=== PATIENT | female | born 1970 | race Caucasian/White ===

== ENCOUNTER 2017-10-13 01:42 | Emergency (ER) | payer BC ==
[2017-10-13] MEDS ORDERED: Albuterol-Ipratrop 3 mg / 0.5 (3 ml) UD ONE ×2 (02:19→04:20)
[2017-10-13] MEDS ORDERED: Albuterol-Ipratrop 3 mg / 0.5 (3 ml) UD INH STA (02:23)
--- NOTE | 2017-10-13 03:45 | C.PDOC ---
History Of Present Illness t presents with worsening shortness of breath. Took a treatment at home, but still sob. No f/c/n/v. Speaking in 4-5 word sentences. No cp or palpitations. Feels slightly better with the neb treatment in the ed Time Seen by Provider: 10/13/17 03:45 Chief Complaint (Nursing): Shortness Of Breath History Per: Patient History/Exam Limitations: no limitations Onset/Duration Of Symptoms: Days (1) Current Symptoms Are (Timing): Still Present Initiating Event: Upper Respiratory Illness Quality: Dull Exacerbating Factor(s): Coughing Current Respiratory Medications: See Home Med List Severity: Moderate Pain Scale Rating Of: 5 Associated Symptoms: denies: Productive Cough Reports Recently: Treated By A Physician Recent travel outside of the [place]: No Additional History Per: Family Past Medical History Reviewed: Historical Data, Nursing Documentation, Vital Signs Vital Signs: Last Vital Signs Temp 97.8 F 10/13/17 05:22 Pulse 84 10/13/17 05:22 Resp 17 10/13/17 05:22 BP 123/73 10/13/17 05:22 Pulse Ox 95 10/13/17 05:39 - Medical History PMH: Asthma, Bronchitis, Pneumonia Denies: HTN Family History: States: No Known Family Hx - Social History Hx Tobacco Use: No Hx Alcohol Use: No Hx Substance Use: No - Immunization History Hx Tetanus Toxoid Vaccination: No Hx Influenza Vaccination: No Hx Pneumococcal Vaccination: No Review Of Systems Constitutional: Negative for: Fever, Chills Eyes: Negative for: Redness ENT: Negative for: Throat Pain Cardiovascular: Negative for: Chest Pain Respiratory: Positive for: Cough, Shortness of Breath Gastrointestinal: Negative for: Abdominal Pain Genitourinary: Negative for: Dysuria Musculoskeletal: Negative for: Back Pain Skin: Negative for: Rash Neurological: Negative for: Weakness Psych: Negative for: Anxiety Physical Exam - Physical Exam Appears: Non-toxic Skin: Warm, Dry Head: Normacephalic Eye(s): bilateral: Normal Inspection Oral Mucosa: Moist Throat: No Erythema Neck: Supple Chest: Symmetrical Cardiovascular: Rhythm Regular Respiratory: Decreased Breath Sounds, No Rales, No Rhonchi, Wheezing Gastrointestinal/Abdominal: Soft, No Tenderness Back: Normal Inspection Extremity: Normal ROM Extremity: Bilateral: Atraumatic Neurological/Psych: Oriented x3, Normal Speech Gait: Steady ED Course And Treatment - Laboratory Results Result Diagrams: 10/13/17 04:11 10/13/17 04:11 O2 Sat by Pulse Oximetry: 95 Pulse Ox Interpretation: Normal - Radiology CXR: Interpreted by Me, Viewed By Me CXR Interpretation: No: Infiltrates, Fracture, Pnemothorax Reevaluation Time: 06:06 Reassessment Condition: Improved Critical Care Time - Critical Care Note Total Time (in mins): 30 Documented critical care: time excludes all time spent performing seperately billable procedures. Disposition Counseled Patient/Family Regarding: Studies Performed, Diagnosis, Need For Followup, Rx Given - Disposition Referrals: [facility] at [facility] [Outside] [facility] [Outside] Disposition: HOME/ ROUTINE Disposition Time: 03:45 Condition: FAIR Additional Instructions: Please return if symptoms recur Prescriptions: Albuterol/Ipratropium [Duoneb 3 MG/3 Ml-0.5 MG/3 Ml 3 Ml] 3 ml IH QID #50 neb Azithromycin [Zithromax Tri-Fabian] 500 mg PO DAILY #3 tab predniSONE [predniSONE Tab] 20 mg PO DAILY #3 tab Instructions: Asthma (DC) Forms: [employer] (South Korean) - Clinical Impression Clinical Impression: Asthma exacerbation
[2017-10-13] MEDS ORDERED: Sodium Chloride 0.9% 1,000 ML IV ONE (03:55)
[2017-10-13] MEDS: Albuterol-Ipratrop 3 mg / 0.5 (3 ml) UD IH SCH ×3 (04:05→04:35)
[2017-10-13] MEDS ORDERED: Sodium Chloride 0.9% 1,000 ML ONE (04:19)
[2017-10-13 04:33] LABS: ALBUMIN 4.1 g/dL (3.5-5.0); ALT/SGPT 33 U/L (9-52); AST/SGOT 25 U/L (14-36); BLOOD UREA NITROGEN 11 mg/dL (7-17); CALCIUM 9.3 mg/dl (8.6-10.4); GFR AFRICAN-AMERICAN > 60; GFR NON-AFRICAN AMERICAN > 60
[2017-10-13 04:45] LABS: BASO # 0.1 K/uL (0.0-0.2); BASO % 0.6 % (0.0-2.0); EOS # 0.7 K/uL (0.0-0.7); EOS % 5.3 % (0.0-4.0); HEMOGLOBIN 11.1 g/dL (11.0-16.0); LYMPH # 1.8 K/uL (1.0-4.3); MEAN CELL VOLUME 73.6 fL (81.0-99.0); MEAN CORPUSCULAR HEMOGLOBIN 23.9 pg (27.0-31.0); MEAN CORPUSCULAR HGB CONC 32.5 g/dL (33.0-37.0); MEAN PLATELET VOLUME 8.3 fL (7.2-11.7); MONO # 0.9 K/uL (0.0-0.8); MONO % 6.1 % (0.0-10.0); NEUT # 10.4 K/uL (1.8-7.0); RBC 4.66 Mil/uL (3.80-5.20); RED CELL DISTRIBUTION WIDTH 17.5 % (11.5-14.5); WHITE BLOOD COUNT 13.9 K/uL (4.8-10.8)
[2017-10-13 04:46] LABS: ABG ALLEN TEST POSITIVE; ARTERIAL BLOOD GAS HCO3 18.3 mmol/L (21-28); ARTERIAL BLOOD GAS O2 SAT 98.6 % (95-98); ARTERIAL BLOOD GAS PCO2 25 mm/Hg (35-45); ARTERIAL BLOOD GAS PH 7.38 (7.35-7.45); ARTERIAL BLOOD GAS PO2 99 mm/Hg (80-100); ARTERIAL BLOOD GAS TCO2 15.6 mmol/L (22-28)
[2017-10-13 05:23] VITALS: BP 123/73; PULSE 84; RESP 17; TEMP 97.8
[2017-10-13 05:39] VITALS: O2SAT 95
--- NOTE | 2017-10-13 11:00 | RAD ---
HISTORY: SOB COMPARISON: Chest x-ray performed 09/25/13 TECHNIQUE: Chest, one view. FINDINGS: LUNGS: No focal consolidation. Please note that chest x-ray has limited sensitivity for the detection of pulmonary masses. PLEURA: No significant pleural effusion identified. No definite pneumothorax . CARDIOVASCULAR: The cardiomediastinal silhouette appears within normal limits of size. OSSEOUS STRUCTURES: No acute osseous abnormality identified. VISUALIZED UPPER ABDOMEN: Unremarkable. OTHER FINDINGS: None. IMPRESSION: No focal consolidation, significant pleural effusion, or definite pneumothorax identified.
== END 2017-10-13 06:32 | disposition home or self-care (01) ==
LOC: C.ER 01:42
DX: J45.901 Unspecified asthma with (acute) exacerbation (principal)
CPT/HCPCS: 71045; 80053; 82803; 85025; 94640; 96361; 96374; 99285; J2930; J7040

== ENCOUNTER 2018-05-24 08:52 | Emergency (ER) | payer MEDICAID, OTHER ==
[2018-05-24 08:53] VITALS: BMI 29.9
[2018-05-24 09:08] VITALS: BP 119/80; PULSE 88; RESP 18; TEMP 98; O2SAT 98
[2018-05-24] MEDS ORDERED: Naproxen 550 mg Tab PO STA (09:22)
[2018-05-24] MEDS ORDERED: Naproxen 550 mg Tab PO ONE (09:27)
--- NOTE | 2018-05-24 10:05 | C.PDOC ---
Time Seen by Provider: 05/24/18 09:08 Chief Complaint (Nursing): Hip Pain Past Medical History Vital Signs: Last Vital Signs Temp 98 F 05/24/18 09:05 Pulse 88 05/24/18 09:05 Resp 18 05/24/18 09:05 BP 119/80 05/24/18 09:05 Pulse Ox 98 05/24/18 09:05 - Medical History PMH: Asthma, Bronchitis, Pneumonia Denies: Chronic Kidney Disease Family History: States: Unknown Family Hx - Social History Hx Tobacco Use: No Hx Alcohol Use: No Hx Substance Use: No - Immunization History Hx Tetanus Toxoid Vaccination: No Hx Influenza Vaccination: No Hx Pneumococcal Vaccination: No ED Course And Treatment O2 Sat by Pulse Oximetry: 98 Disposition Counseled Patient/Family Regarding: Studies Performed, Diagnosis, Need For Followup, Rx Given - Disposition Referrals: Sunita Dior MD [Staff Provider] - Disposition: HOME/ ROUTINE Disposition Time: 10:05 Condition: STABLE Additional Instructions: FOLLOW UP WITH ORTHOPEDICS WITHIN 1 WEEK USE MEDICATIONS NEEDED/DIRECTED RETURN TO ER IF SYMPTOMS WORSEN Prescriptions: Cyclobenzaprine [Flexeril] 10 mg PO BID PRN #15 tab PRN Reason: Muscle Spasm Naproxen [Naprosyn] 1 tab PO BID PRN #25 tab PRN Reason: Pain Instructions: Hip Pain (DC) Print Language: CHILEAN - POA Present On Arrival: None - Clinical Impression Clinical Impression: Right hip pain
--- NOTE | 2018-05-24 10:06 | C.PDOC ---
History Of Present Illness 47-year-old female, presents to the emergency department with complaints of right hip pain that started a few days ago. Pain is worse with movement. Patient denies any direct trauma. Time Seen by Provider: 05/24/18 09:08 Chief Complaint (Nursing): Hip Pain History Per: Patient History/Exam Limitations: no limitations Current Symptoms Are (Timing): Still Present Severity: Moderate Past Medical History Reviewed: Historical Data, Nursing Documentation, Vital Signs Vital Signs: Last Vital Signs Temp 98 F 05/24/18 09:05 Pulse 88 05/24/18 09:05 Resp 18 05/24/18 09:05 BP 119/80 05/24/18 09:05 Pulse Ox 98 05/24/18 10:09 - Medical History PMH: Asthma, Bronchitis, Pneumonia Family History: States: No Known Family Hx - Social History Hx Tobacco Use: No Hx Alcohol Use: No Hx Substance Use: No - Immunization History Hx Tetanus Toxoid Vaccination: No Hx Influenza Vaccination: No Hx Pneumococcal Vaccination: No Review Of Systems Musculoskeletal: Positive for: Other (Hip pain) Physical Exam - Physical Exam Appears: Non-toxic, No Acute Distress Skin: Warm, Dry, No Rash Head: Atraumatic, Normacephalic Eye(s): bilateral: Normal Inspection Nose: Normal Oral Mucosa: Moist Lips: Normal Appearing Neck: Normal ROM Chest: Symmetrical Respiratory: No Accessory Muscle Use Extremity: No Calf Tenderness, No Deformity, Other (Tender to palpation to right lateral and posterior hip.) Neurological/Psych: Oriented x3, Normal Speech Gait: Steady ED Course And Treatment O2 Sat by Pulse Oximetry: 98 Pulse Ox Interpretation: Normal (RA) - Other Rad XR hip X-Ray: Viewed By Me, Read By Radiologist Interpretation: Accession No. : [id number]. Patient Name / ID : LIDIA FOWLER / [id number]. Exam Date : 05/24/2018 09:41:23 ( Approved ). Study Comment : Sex / Age : F / 47Y. Creator : Nan Escoto MD. Dictator : Nan Escoto MD. Tooth Cutter Clutch : Taper Operator : Nan Escoto MD. Approver2 : Report Date : 05/24/2018 10:45:07. My Comment : . PROCEDURE: Right Hip Radiographs. HISTORY: Right hip pain. COMPARISON: None. FINDINGS: BONES: Bone alignment and mineralization are normal. There is no acute displaced fracture or bone destruction. JOINTS: Normal. SOFT TISSUES: Normal. OTHER FINDINGS: None. IMPRESSION: No acute fracture or dislocation. Progress Note: XR ordered and reviewed. Pt treated with naproxen and Flexeril. Reassessment Condition: Improved (Pt instructed to f/u with ortho. Return if symptoms worsen or persist.) Disposition - Disposition Referrals: Sunita Dior MD [Staff Provider] - Disposition: HOME/ ROUTINE Disposition Time: 10:05 Condition: STABLE Additional Instructions: FOLLOW UP WITH ORTHOPEDICS WITHIN 1 WEEK USE MEDICATIONS NEEDED/DIRECTED RETURN TO ER IF SYMPTOMS WORSEN Prescriptions: Cyclobenzaprine [Flexeril] 10 mg PO BID PRN #15 tab PRN Reason: Muscle Spasm Naproxen [Naprosyn] 1 tab PO BID PRN #25 tab PRN Reason: Pain Instructions: Hip Pain (DC) Forms: [employer] (Bhutanese) Print Language: SUDANESE - Clinical Impression Clinical Impression: Right hip pain - Scribe Statement The provider has reviewed the documentation as recorded by the Scribe (Ashlyn Marroquin) Provider Attestation: All medical record entries made by the Scribe were at my direction and personally dictated by me. I have reviewed the chart and agree that the record accurately reflects my personal performance of the history, physical exam, medical decision making, and the department course for this patient. I have also personally directed, reviewed, and agree with the discharge instructions and disposition.
--- NOTE | 2018-05-24 10:47 | RAD ---
PROCEDURE: Right Hip Radiographs. HISTORY: Right hip pain COMPARISON: None. FINDINGS: BONES: Bone alignment and mineralization are normal. There is no acute displaced fracture or bone destruction. JOINTS: Normal. SOFT TISSUES: Normal. OTHER FINDINGS: None. IMPRESSION: No acute fracture or dislocation.
== END 2018-05-24 10:08 | disposition home or self-care (01) ==
LOC: C.ER 08:52
DX: M25.551 Pain in right hip (principal)

== ENCOUNTER 2018-09-04 15:32 | Inpatient (IN) | payer MEDICAID ==
[2018-09-04 15:33] VITALS: BMI 29.9
[2018-09-04] MEDS ORDERED: Albuterol-Ipratrop 3 mg / 0.5 (3 ml) UD ONE ×3 (15:39→20:18)
[2018-09-04] MEDS ORDERED: Albuterol 0.083% Inhal Sol (2.5 mg/3 mL) UD INH STA (17:15)
[2018-09-04] MEDS ORDERED: Albuterol 0.042% Inhal Sol (1.25 mg/3 mL) UD ONE (17:45)
--- NOTE | 2018-09-04 18:16 | C.PDOC ---
History Of Present Illness 48 years old female with PMHx of asthma presents to ED for complaints of shortness of breath, subjective fever, and wheezing that began few days ago. Patient reports symptoms worsened today which prompted the ED visit. <Tamanna Mercado - Last Filed: 09/04/18 18:48> History Per: Patient History/Exam Limitations: no limitations Onset/Duration Of Symptoms: Hrs Current Symptoms Are (Timing): Still Present Current Respiratory Medications: See Home Med List Associated Symptoms: Fever Recent travel outside of the [place]: No <Tamanna Mercado - Last Filed: 09/04/18 18:48> <Neal Baron - Last Filed: 09/04/18 20:27> Time Seen by Provider: 09/04/18 16:41 Chief Complaint (Nursing): Shortness Of Breath Past Medical History Reviewed: Historical Data, Nursing Documentation, Vital Signs Vital Signs: Last Vital Signs Temp 98.6 F 09/04/18 15:41 Pulse 111 H 09/04/18 15:41 Resp 21 09/04/18 15:41 BP 121/76 09/04/18 15:41 Pulse Ox 94 L 09/04/18 15:41 - Medical History PMH: Asthma, Bronchitis, Pneumonia Denies: Chronic Kidney Disease Family History: States: Unknown Family Hx - Social History Hx Tobacco Use: No Hx Alcohol Use: No Hx Substance Use: No - Immunization History Hx Tetanus Toxoid Vaccination: No Hx Influenza Vaccination: No Hx Pneumococcal Vaccination: No <Tamanna Mercado - Last Filed: 09/04/18 18:48> Vital Signs: Last Vital Signs Temp 98.6 F 09/04/18 15:41 Pulse 111 H 09/04/18 15:41 Resp 18 09/04/18 18:05 BP 121/76 09/04/18 15:41 Pulse Ox 94 L 09/04/18 18:50 <Neal Baron - Last Filed: 09/04/18 20:27> Review Of Systems Constitutional: Positive for: Fever. Negative for: Chills Respiratory: Positive for: Shortness of Breath, Wheezing Gastrointestinal: Negative for: Nausea, Vomiting, Diarrhea Skin: Negative for: Rash Neurological: Negative for: Weakness, Numbness <Tamanna Mercado - Last Filed: 09/04/18 18:48> Physical Exam - Physical Exam Appears: Non-toxic, No Acute Distress, Other (Not febrile ) Skin: Normal Color, Warm, Dry, No Rash Head: Atraumatic, Normacephalic Eye(s): bilateral: Normal Inspection, PERRL, EOMI Oral Mucosa: Moist Neck: Normal ROM, Supple Chest: Symmetrical, No Tenderness Cardiovascular: Rhythm Regular, No Murmur Respiratory: No Decreased Breath Sounds, No Rales, No Rhonchi, Wheezing Gastrointestinal/Abdominal: Soft, No Tenderness Extremity: Normal ROM Extremity: Bilateral: Atraumatic, Normal Color And Temperature, Normal ROM Pulses: Left Radial: Normal, Right Radial: Normal Neurological/Psych: Oriented x3, Normal Speech Gait: Steady <Tamanna Mercado - Last Filed: 09/04/18 18:48> ED Course And Treatment O2 Sat by Pulse Oximetry: 94 (RA) Pulse Ox Interpretation: Abnormal Progress Note: Administered ALbuterol nebulizer treatment/ peak flow and solu- medrol. Ordered CXR, EKG, and flu AB swab. <Tamanna Mercado - Last Filed: 09/04/18 18:48> Disposition - Disposition Disposition Time: 18:50 <Tamanna Mercado - Last Filed: 09/04/18 18:48> Discussed With : Judi Engle Doctor Will See Patient In The: Hospital Counseled Patient/Family Regarding: Diagnosis - Disposition Disposition Time: 20:25 <Neal Baron - Last Filed: 09/04/18 20:27> - Disposition Disposition: HOSPITALIZED Condition: STABLE Instructions: Asthma (ED), Pneumonia in Adults Forms: [employer] (Andorran) - Clinical Impression Clinical Impression: Asthma exacerbation, Pneumonia - PA / DIGITAL FORENSICS EXAMINER / Resident Statement MD/DO has reviewed & agrees with the documentation as recorded. - Scribe Statement The provider has reviewed the documentation as recorded by the Crowibjaqui Eid All medical record entries made by the Crowibjaqui were at my direction and personally dictated by me. I have reviewed the chart and agree that the record accurately reflects my personal performance of the history, physical exam, medical decision making, and the department course for this patient. I have also personally directed, reviewed, and agree with the discharge instructions and disposition. <Tamanna Mercado - Last Filed: 09/04/18 18:48> Physician Patient Turnover Patient Signed Over To: Neal Baron Handoff Comments: pending chest CT and re-evaluation <Tamanna Mercado - Last Filed: 09/04/18 18:48>
--- NOTE | 2018-09-04 18:28 | RAD ---
HISTORY: cough/fever/wheezing COMPARISON: Chest x-ray performed 10/21/17 TECHNIQUE: Chest PA and lateral FINDINGS: LUNGS: Bilateral hilar prominence. Mild atelectasis/infiltrate silhouetting the right heart border, right middle lobe. 5 mm nodular opacity within the lateral left lower lobe possibly related to confluence of shadows however pulmonary nodule is not excluded. Please note that chest x-ray has limited sensitivity for the detection of pulmonary masses. PLEURA: No significant pleural effusion identified. No definite pneumothorax . CARDIOVASCULAR: Heart size appears within normal limits. Atherosclerotic calcification present. OSSEOUS STRUCTURES: No acute osseous abnormality is detected VISUALIZED UPPER ABDOMEN: Unremarkable. OTHER FINDINGS: None. IMPRESSION: Bilateral hilar prominence. Mild atelectasis/infiltrate silhouetting the right heart border, right middle lobe. 5 mm nodular opacity within the lateral left lower lobe possibly related to confluence of shadows however pulmonary nodule is not excluded. Outpatient follow-up CT of the chest may be considered for further evaluation if indicated.
[2018-09-04] MEDS ORDERED: Albuterol-Ipratrop 3 mg / 0.5 (3 ml) UD INH STA (19:53)
[2018-09-04] MEDS ORDERED: Azithromycin 500 MG in Sodium Chloride 0.9% 250 ML IVPB STA (20:11)
[2018-09-04] MEDS ORDERED: Azithromycin 500mg/250ML NS 500 MG/250 ML BAG IVPB ONE (21:30)
[2018-09-05] MEDS ORDERED: Albuterol HFA 90 mcg/actuation (8 g) IH PRN (02:12)
[2018-09-05] MEDS: Albuterol-Ipratrop 3 mg / 0.5 (3 ml) UD INH PRN ×2 (02:20→19:34)
[2018-09-05] MEDS: MethylPREDNISolone 40 mg Vial IVP SCH ×2 (02:32→10:37)
--- NOTE | 2018-09-05 07:48 | CP.PCM.PN ---
Subjective - Date & Time of Evaluation Date of Evaluation: 09/05/18 Time of Evaluation: 07:47 - Subjective Subjective: Medicine Progress Note - Dr Josselin Engle's Service Patient is a 48 year old female with past medical history of asthma who presented with worsening chest tightness and productive cough. Patient reports that 3 weeks ago she was experiencing dry cough, congestion and cold like symptoms. She started feeling better then on Sunday while at work started experiencing chest tightness. Cough now productive with yellow sputum. Also reports having subjective fevers and chills. Today she states that the chest tightness has improved. She reports feeling shortness of breath on exertion. 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 [employer] Family History: Mother - asthma, arthritits; Father - asthma Objective - Vital Signs/Intake and Output Vital Signs (last 24 hours): Temp Pulse Resp BP Pulse Ox 98.1 F 115 H 20 115/68 95 09/04/18 23:20 09/04/18 23:20 09/04/18 23:20 09/04/18 23:20 09/04/18 23:20 - Medications Medications: Current Medications Albuterol (Ventolin Hfa 90 Mcg/Actuation (8 G)) 1 puff IH Q6 PRN PRN Reason: Wheezing Albuterol/Ipratropium (Duoneb 3 Mg/0.5 Mg (3 Ml) Ud) 3 ml INH RQ2 PRN PRN Reason: Shortness of Breath Last Admin: 09/05/18 02:20 Dose: 3 ml Enoxaparin Sodium (Lovenox) 40 mg SC DAILY JOSE ARMANDO Fluticasone/Vilanterol (Breo Ellipta 100-25 Mcg Inh) 1 puff INH RQD JOSE ARMANDO Azithromycin 500 mg/ Sodium (Chloride) 250 mls @ 250 mls/hr IVPB DAILY JOSE ARMANDO; Protocol Methylprednisolone (Solu-Medrol) 60 mg IVP DAILY JOSE ARMANDO Last Admin: 09/05/18 02:32 Dose: 60 mg Montelukast Sodium (Singulair) 10 mg PO HS JOSE ARMANDO Pantoprazole Sodium (Protonix Inj) 40 mg IVP DAILY JOSE ARMANDO - Constitutional Appears: Non-toxic, No Acute Distress - Head Exam Head Exam: ATRAUMATIC, NORMAL INSPECTION, NORMOCEPHALIC - Eye Exam Eye Exam: EOMI, Normal appearance - ENT Exam ENT Exam: Mucous Membranes Moist - Neck Exam Neck Exam: Full ROM - Respiratory Exam Respiratory Exam: Rhonchi, Wheezes (mild wheezing throughout), NORMAL BREATHING PATTERN. absent: Rales, Respiratory Distress, Stridor - Cardiovascular Exam Cardiovascular Exam: REGULAR RHYTHM, +S1, +S2 - GI/Abdominal Exam GI & Abdominal Exam: Soft, Normal Bowel Sounds. absent: Guarding, Rigid, Tenderness - Extremities Exam Extremities Exam: Full ROM, Normal Inspection. absent: Calf Tenderness - Neurological Exam Neurological Exam: Alert, Awake, Oriented x3 - Psychiatric Exam Psychiatric exam: Normal Affect, Normal Mood - Skin Skin Exam: Dry, Normal Color, Warm Assessment and Plan - Assessment and Plan (Free Text) Assessment: Community Acquired Pneumonia -Stable, afebrile -No leukocytosis, low procal -Supplemental O2 as needed -Antibiotics: Azithromycin 500mg daily IVPB (started 09/04/18) -Influenza negative, mycoplasma pending -Pulmonology on consult, Dr Ramirez, help appreciated Imaging: CT Chest: Right middle lobe and lingular nodular and streaky opacities suspected to reflect multifocal pneumonia. Recommend follow-up to ensure complete resolution (see full report) CXR: Bilateral hilar prominence. Mild atelectasis/infiltrate silhouetting the right heart border, right middle lobe. 5 mm nodular opacity within the lateral left lower lobe possibly related to confluence of shadows however pulmonary nodule is not excluded. Outpatient follow-up CT of the chest may be considered for further evaluation if indicated (see full report) Asthma Exacerbation -Duonebs Q2H prn shortness of breath -Solumedrol 60mg IVP daily -Singulair 10mg PO HS -Breo 100-25mcg 1 INH daily -Pulmonology on consult, Dr Ramirez, help appreciated Microcytic Anemia -Hgb 10.5 today, asymptomatic -Likely Iron deficiency -Patient denies history of heavy periods, blood in stools -Never had a colonoscopy, recommend outpatient FIT test -Once pneumonia resolves, can start ferrous sulfate 325mg PO daily GI/DVT ppx: Protonix 40mg IVP daily Lovenox 40mg SC daily Plan discussed with Dr Josselin Escobar DO PGY-2
[2018-09-05 08:28] LABS: BASO % 0.1 % (0.0-2.0); HEMOGLOBIN 10.5 g/dL (11.0-16.0); LYMPH # 0.6 K/uL (1.0-4.3); LYMPH % 8.5 % (20.0-40.0); MEAN CELL VOLUME 74.1 fL (81.0-99.0); MEAN CORPUSCULAR HEMOGLOBIN 23.9 pg (27.0-31.0); MEAN CORPUSCULAR HGB CONC 32.3 g/dL (33.0-37.0); MEAN PLATELET VOLUME 7.7 fL (7.2-11.7); MONO # 0.1 K/uL (0.0-0.8); MONO % 1.3 % (0.0-10.0); NEUT # 6.1 K/uL (1.8-7.0); NEUT % 90.1 % (50.0-75.0); RBC 4.37 Mil/uL (3.80-5.20); RED CELL DISTRIBUTION WIDTH 17.9 % (11.5-14.5); WHITE BLOOD COUNT 6.8 K/uL (4.8-10.8)
[2018-09-05 08:32] LABS: PLATELET COUNT 422 K/uL (130-400)
[2018-09-05 08:41] LABS: ALB/GLOB RATIO 1.2 (1.0-2.1); ALBUMIN 4.4 g/dL (3.5-5.0); ALT/SGPT 22 U/L (9-52); AST/SGOT 19 U/L (14-36); BLOOD UREA NITROGEN 15 mg/dL (7-17); CALCIUM 9.7 mg/dl (8.6-10.4); GFR NON-AFRICAN AMERICAN > 60
[2018-09-05 08:58] LABS: ANISOCYTOSIS SLIGHT; HYPOCHROMIC SLIGHT; LYMPHOCYTE 8 % (20-40); MONOCYTE 1 % (0-10); NEUTROPHIL 91 % (50-75); OVALOCYTES SLIGHT; PLATELET ESTIMATE SLIGHTLY INCREASED (NORMAL); TOTAL CELLS COUNTED 100
[2018-09-05] MEDS ORDERED: Azithromycin 500 MG in Sodium Chloride 0.9% 250 ML IVPB SCH (10:00)
[2018-09-05] MEDS: Enoxaparin 40 mg Syringe SC SCH (10:42)
--- NOTE | 2018-09-05 10:57 | CT ---
Date of service: 09/04/2018 CT chest without IV contrast Indication: wheezing, cough., abnormal CXR Technique: Contiguous axial images were obtained through the chest without intravenous contrast enhancement. Sagittal and coronal reconstructions were generated and reviewed. This CT exam was performed using 1 or more of the following dose reduction techniques: Automated exposure control, adjustment of the MAA and/or kV according to patient size, and/or use of iterative reconstruction technique. Radiation dose (DLP): 375.46 MGy-cm. Comparison: Chest x-ray performed earlier the same day. Findings: Visualized portions of the inferior thyroid gland appear unremarkable. The mediastinal and hilar vascular structures appear within normal limits. The heart appears within normal limits of size. Sub cm mediastinal lymph nodes, nonspecific. Right middle lobe and lingular nodular and streaky opacities suspected to reflect multifocal pneumonia. No pleural effusion. No pneumothorax. Limited visualization of the noncontrast upper abdomen appears grossly unremarkable. No acute osseous abnormality is detected. Impression: Right middle lobe and lingular nodular and streaky opacities suspected to reflect multifocal pneumonia. Recommend follow-up to ensure complete resolution. Preliminary impression was provided by [employer].
[2018-09-05 12:31] LABS: IRON 40 ug/dL (37-170)
[2018-09-05 12:42] LABS: % IRON SATURATION 9 (20-55); TOTAL IRON BINDING CAPACITY 427 ug/dL (250-450)
[2018-09-05 13:07] LABS: FERRITIN 9.1 ng/mL
--- NOTE | 2018-09-05 13:52 | CP.PCM.HP ---
Past Patient History - Past Medical History & Family History Past Medical History?: Yes - Past Social History Smoking Status: Never Smoked - CARDIAC Hx Cardiac Disorders: No - PULMONARY Hx Asthma: Yes Hx Bronchitis: Yes Hx Pneumonia: Yes - NEUROLOGICAL Hx Neurological Disorder: No - HEENT Hx HEENT Problems: No - RENAL Hx Chronic Kidney Disease: No - ENDOCRINE/METABOLIC Hx Endocrine Disorders: No - HEMATOLOGICAL/ONCOLOGICAL Hx Blood Disorders: No - INTEGUMENTARY Hx Dermatological Problems: No - MUSCULOSKELETAL/RHEUMATOLOGICAL Hx Falls: No - GASTROINTESTINAL Hx Gastrointestinal Disorders: No - GENITOURINARY/GYNECOLOGICAL Hx Genitourinary Disorders: No - PSYCHIATRIC Hx Substance Use: No - SURGICAL HISTORY Hx Surgeries: Yes Hx Tubal Ligation: Yes - ANESTHESIA Hx Anesthesia: Yes Hx Anesthesia Reactions: No Meds Allergies/Adverse Reactions: Allergies Allergy/AdvReac Type Severity Reaction Status Date / Time Penicillins Allergy Mild RASH Verified 09/04/18 15:45 Physical Exam - Constitutional Appears: Well - Head Exam Head Exam: ATRAUMATIC, NORMAL INSPECTION, NORMOCEPHALIC - Eye Exam Eye Exam: EOMI, Normal appearance, PERRL Pupil Exam: NORMAL ACCOMODATION, PERRL - ENT Exam ENT Exam: Mucous Membranes Moist, Normal Exam - Neck Exam Neck exam: Positive for: Normal Inspection - Respiratory Exam Respiratory Exam: Decreased Breath Sounds - Cardiovascular Exam Cardiovascular Exam: REGULAR RHYTHM, +S1, +S2 - GI/Abdominal Exam GI & Abdominal Exam: Diminished Bowel Sounds, Soft - Rectal Exam Rectal Exam: Deferred Results - Vital Signs Recent Vital Signs: Last Vital Signs Temp 97.7 F 09/05/18 08:47 Pulse 83 09/05/18 08:47 Resp 20 09/05/18 08:47 BP 99/61 L 09/05/18 08:47 Pulse Ox 94 L 09/05/18 08:47 - Labs Result Diagrams: 09/05/18 08:23 09/05/18 08:23 Labs: Laboratory Results - last 24 hr 09/04/18 09/05/18 09/05/18 18:39 08:23 08:23 WBC 6.8 RBC 4.37 Hgb 10.5 L Hct 32.4 L MCV 74.1 L MCH 23.9 L MCHC 32.3 L RDW 17.9 H Plt Count 422 H D MPV 7.7 Neut % (Auto) 90.1 H Lymph % (Auto) 8.5 L [place] % (Auto) 1.3 Eos % (Auto) 0.0 Baso % (Auto) 0.1 Neut # (Auto) 6.1 Lymph # (Auto) 0.6 L [place] # (Auto) 0.1 Eos # (Auto) 0.0 Baso # (Auto) 0.0 Neutrophils % (Manual) 91 H Lymphocytes % (Manual) 8 L Monocytes % (Manual) 1 Platelet Estimate Slightly increased H Hypochromasia (manual) Slight Anisocytosis (manual) Slight Ovalocytes Slight Retic Count 1.0 Sodium Potassium Chloride Carbon Dioxide Anion Gap BUN Creatinine Est GFR ( Amer) Est GFR (Non-Af Amer) Random Glucose Calcium Iron TIBC % Saturation Transferrin Ferritin Total Bilirubin AST ALT Alkaline Phosphatase Total Protein Albumin Globulin Albumin/Globulin Ratio Procalcitonin 0.07 L Influenza Typ A,B (EIA) Negative for flu a/b 09/05/18 09/05/18 09/05/18 08:23 10:00 12:00 WBC RBC Hgb Hct MCV MCH MCHC RDW Plt Count MPV Neut % (Auto) Lymph % (Auto) [place] % (Auto) Eos % (Auto) Baso % (Auto) Neut # (Auto) Lymph # (Auto) [place] # (Auto) Eos # (Auto) Baso # (Auto) Neutrophils % (Manual) Lymphocytes % (Manual) Monocytes % (Manual) Platelet Estimate Hypochromasia (manual) Anisocytosis (manual) Ovalocytes Retic Count Sodium 134 Potassium 4.3 Chloride 101 Carbon Dioxide 21 L Anion Gap 16 BUN 15 Creatinine 0.6 L Est GFR ( Amer) > 60 Est GFR (Non-Af Amer) > 60 Random Glucose 187 H D Calcium 9.7 Iron 40 TIBC 427 % Saturation 9 L Transferrin 324.13 Ferritin 9.1 Total Bilirubin 0.4 AST 19 ALT 22 Alkaline Phosphatase 83 Total Protein 8.1 Albumin 4.4 Globulin 3.7 Albumin/Globulin Ratio 1.2 Procalcitonin Influenza Typ A,B (EIA)
--- NOTE | 2018-09-05 15:37 | CP.PCM.HP ---
<Millie Escobar - Last Filed: 09/05/18 15:46> History of Present Illness - History of Present Illness History of Present Illness: History and Physical - Hospitalist Service Patient is a 48 year old female with past medical history of asthma who presented with worsening chest tightness and productive cough. Patient reports that 3 weeks ago she was experiencing dry cough, congestion and cold like symptoms. She started feeling better then on Sunday while at work started experiencing chest tightness. Cough now productive with yellow sputum. Also reports having subjective fevers and chills. Today she states that the chest tightness has improved. She reports feeling shortness of breath on exertion. Patient was hospitalized for pneumonia 3 years ago and reports being in the hospital for approximately 1 week. She also reports using a humidifier at home, nebulizers and ventolin for her asthma. She denies fevers, chills, headaches, dizziness, cp, palpitations, abdominal pain, urinary symptoms, changes in bowel habits. 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 [employer] Family History: Mother - asthma, arthritis; Father - asthma Present on Admission - Present on Admission Any Indicators Present on Admission: No Past Patient History - Past Medical History & Family History Past Medical History?: Yes - Past Social History Smoking Status: Never Smoked - CARDIAC Hx Cardiac Disorders: No - PULMONARY Hx Asthma: Yes Hx Bronchitis: Yes Hx Pneumonia: Yes - NEUROLOGICAL Hx Neurological Disorder: No - HEENT Hx HEENT Problems: No - RENAL Hx Chronic Kidney Disease: No - ENDOCRINE/METABOLIC Hx Endocrine Disorders: No - HEMATOLOGICAL/ONCOLOGICAL Hx Blood Disorders: No - INTEGUMENTARY Hx Dermatological Problems: No - MUSCULOSKELETAL/RHEUMATOLOGICAL Hx Falls: No - GASTROINTESTINAL Hx Gastrointestinal Disorders: No - GENITOURINARY/GYNECOLOGICAL Hx Genitourinary Disorders: No - PSYCHIATRIC Hx Substance Use: No - SURGICAL HISTORY Hx Surgeries: Yes Hx Tubal Ligation: Yes - ANESTHESIA Hx Anesthesia: Yes Hx Anesthesia Reactions: No Meds Allergies/Adverse Reactions: Allergies Allergy/AdvReac Type Severity Reaction Status Date / Time Penicillins Allergy Mild RASH Verified 09/04/18 15:45 Physical Exam - Additional Findings Additional findings: - Constitutional Appears: Non-toxic, No Acute Distress - Head Exam Head Exam: ATRAUMATIC, NORMAL INSPECTION, NORMOCEPHALIC - Eye Exam Eye Exam: EOMI, Normal appearance - ENT Exam ENT Exam: Mucous Membranes Moist - Neck Exam Neck Exam: Full ROM - Respiratory Exam Respiratory Exam: Rhonchi, Wheezes (mild wheezing throughout), NORMAL BREATHING PATTERN. absent: Rales, Respiratory Distress, Stridor - Cardiovascular Exam Cardiovascular Exam: REGULAR RHYTHM, +S1, +S2 - GI/Abdominal Exam GI & Abdominal Exam: Soft, Normal Bowel Sounds. absent: Guarding, Rigid, Tenderness - Extremities Exam Extremities Exam: Full ROM, Normal Inspection. absent: Calf Tenderness - Neurological Exam Neurological Exam: Alert, Awake, Oriented x3 - Psychiatric Exam Psychiatric exam: Normal Affect, Normal Mood - Skin Skin Exam: Dry, Normal Color, Warm Results - Vital Signs Recent Vital Signs: Last Vital Signs Temp 97.7 F 09/05/18 08:47 Pulse 83 09/05/18 08:47 Resp 20 09/05/18 08:47 BP 99/61 L 09/05/18 08:47 Pulse Ox 94 L 09/05/18 08:47 - Labs Result Diagrams: 09/05/18 08:23 09/05/18 08:23 Labs: Laboratory Results - last 24 hr 09/04/18 09/05/18 09/05/18 18:39 08:23 08:23 WBC 6.8 RBC 4.37 Hgb 10.5 L Hct 32.4 L MCV 74.1 L MCH 23.9 L MCHC 32.3 L RDW 17.9 H Plt Count 422 H D MPV 7.7 Neut % (Auto) 90.1 H Lymph % (Auto) 8.5 L [place] % (Auto) 1.3 Eos % (Auto) 0.0 Baso % (Auto) 0.1 Neut # (Auto) 6.1 Lymph # (Auto) 0.6 L [place] # (Auto) 0.1 Eos # (Auto) 0.0 Baso # (Auto) 0.0 Neutrophils % (Manual) 91 H Lymphocytes % (Manual) 8 L Monocytes % (Manual) 1 Platelet Estimate Slightly increased H Hypochromasia (manual) Slight Anisocytosis (manual) Slight Ovalocytes Slight Retic Count 1.0 Sodium Potassium Chloride Carbon Dioxide Anion Gap BUN Creatinine Est GFR ( Amer) Est GFR (Non-Af Amer) Random Glucose Calcium Iron TIBC % Saturation Transferrin Ferritin Total Bilirubin AST ALT Alkaline Phosphatase Total Protein Albumin Globulin Albumin/Globulin Ratio Procalcitonin 0.07 L Influenza Typ A,B (EIA) Negative for flu a/b 09/05/18 09/05/18 09/05/18 08:23 10:00 12:00 WBC RBC Hgb Hct MCV MCH MCHC RDW Plt Count MPV Neut % (Auto) Lymph % (Auto) [place] % (Auto) Eos % (Auto) Baso % (Auto) Neut # (Auto) Lymph # (Auto) [place] # (Auto) Eos # (Auto) Baso # (Auto) Neutrophils % (Manual) Lymphocytes % (Manual) Monocytes % (Manual) Platelet Estimate Hypochromasia (manual) Anisocytosis (manual) Ovalocytes Retic Count Sodium 134 Potassium 4.3 Chloride 101 Carbon Dioxide 21 L Anion Gap 16 BUN 15 Creatinine 0.6 L Est GFR ( Amer) > 60 Est GFR (Non-Af Amer) > 60 Random Glucose 187 H D Calcium 9.7 Iron 40 TIBC 427 % Saturation 9 L Transferrin 324.13 Ferritin 9.1 Total Bilirubin 0.4 AST 19 ALT 22 Alkaline Phosphatase 83 Total Protein 8.1 Albumin 4.4 Globulin 3.7 Albumin/Globulin Ratio 1.2 Procalcitonin Influenza Typ A,B (EIA) Assessment & Plan - Assessment and Plan (Free Text) Assessment: Patient is a 48 year old female with past medical history of asthma who presented with chest tightness, productive cough, fevers/chills. Found to have multi-focal pneumonia. Community Acquired Pneumonia -Stable, afebrile -No leukocytosis, low procal -Supplemental O2 as needed -Antibiotics: Azithromycin 500mg daily IVPB (started 09/04/18-discontinued), Started Avelox 400mg IVPB daily -Influenza negative, mycoplasma pending -Urine Legionella, strep pneumonia ordered -Pulmonology on consult, Dr Ramirez, help appreciated Imaging: CT Chest: Right middle lobe and lingular nodular and streaky opacities suspected to reflect multifocal pneumonia. Recommend follow-up to ensure complete resolution (see full report) CXR: Bilateral hilar prominence. Mild atelectasis/infiltrate silhouetting the right heart border, right middle lobe. 5 mm nodular opacity within the lateral left lower lobe possibly related to confluence of shadows however pulmonary nodule is not excluded. Outpatient follow-up CT of the chest may be considered for further evaluation if indicated (see full report) Asthma Exacerbation -Duonebs Q2H prn shortness of breath -Solumedrol 40mg IVP daily -Singulair 10mg PO HS -Breo 100-25mcg 1 INH daily -Pulmonology on consult, Dr Ramirez, help appreciated Microcytic Anemia -Hgb 10.5 today, asymptomatic -Likely due to Iron deficiency -Patient denies history of heavy periods, blood in stools -Never had a colonoscopy, recommend outpatient FIT test -Low iron and % saturation -Once pneumonia resolves, can start ferrous sulfate 325mg PO daily GI/DVT ppx: Protonix 40mg IVP daily Lovenox 40mg SC daily Plan discussed with Dr Rhys Escobar DO PGY-2 <Shelton Joiner - Last Filed: 09/07/18 19:56> Results - Vital Signs Recent Vital Signs: Last Vital Signs Temp 97.9 F 09/07/18 15:00 Pulse 79 09/07/18 15:00 Resp 18 09/07/18 15:00 BP 96/66 L 09/07/18 15:00 Pulse Ox 95 09/07/18 15:00 - Labs Result Diagrams: 09/07/18 08:02 09/07/18 08:02 Labs: Laboratory Results - last 24 hr 09/07/18 09/07/18 08:02 08:02 WBC 10.5 RBC 4.34 Hgb 10.2 L Hct 32.7 L MCV 75.4 L MCH 23.5 L MCHC 31.2 L RDW 17.8 H Plt Count 383 D MPV 8.4 Neut % (Auto) 61.5 Lymph % (Auto) 27.8 [place] % (Auto) 9.1 Eos % (Auto) 1.0 Baso % (Auto) 0.6 Neut # (Auto) 6.5 Lymph # (Auto) 2.9 [place] # (Auto) 1.0 H Eos # (Auto) 0.1 Baso # (Auto) 0.1 Sodium 138 Potassium 4.4 Chloride 103 Carbon Dioxide 29 Anion Gap 10 BUN 20 H Creatinine 0.8 Est GFR ( Amer) > 60 Est GFR (Non-Af Amer) > 60 Random Glucose 100 Calcium 8.7 Phosphorus 4.4 Magnesium 2.1 Total Bilirubin 0.3 AST 21 ALT 20 Alkaline Phosphatase 68 Total Protein 7.0 Albumin 3.7 Globulin 3.3 Albumin/Globulin Ratio 1.1 Attending/Attestation - Attestation I have personally seen and examined this patient.: Yes I have fully participated in the care of the patient.: Yes I have reviewed all pertinent clinical information: Yes Notes (Text): Seen and examined with the resident and I agree with her documentation Has bilat rhonchi c/o cough and sob Assessment and the plan discussed with the resident and I agree with the documentation
[2018-09-05] MEDS ORDERED: Apap-Butalbital-Caffeine 325-50-40mg Tab PO ONE (15:45)
[2018-09-05] MEDS: guaiFENesin DM 200 mg-20 mg/10 ml UD PO PRN ×2 (16:20→22:06)
[2018-09-05] MEDS: Lactobacillus Acidophilus 500 MU Cap PO SCH (17:44)
--- NOTE | 2018-09-05 18:34 | CP.PCM.PN ---
Subjective - Date & Time of Evaluation Date of Evaluation: 09/05/18 Time of Evaluation: 11:40 - Subjective Subjective: HPI: 48 year old female with PMH of asthma presents with worsening SOB, wheezing, and subjective fever over the last few days. CXR showed mild atelectasis/infiltrate at right middle lobe along with a 5 mm nodular opacity in the left lower lobe that prompted a CT which showed multi-focal pneumonia of right middle lobe and lingula. Associated symptoms include chest pain with coughing. Symptoms have improved with breathing treatments. Patient currently resting comfortably on 1L NC. PMH: asthma PSH: tubal ligation at age 21 All: penicillin; cats and long hair dogs FamHx: significant for HTN, HLD, DM; mother and sister with leukemia, grandson has lymphoma, grandfather had lung CA, grandmother had Alzheimers SocialHx: former smoker, used roughly 1ppd on and off for over 10 years, quit 6 years ago; denies alcohol use, denies illicit drug use. Lives with family. 10 point ROS negative except for as mentioned in HPI. A&P 1. Pneumonia - 09/04/18 CXR: mild atelectasis/infiltrate at right middle lobe along with a 5 mm nodular opacity in the left lower lobe - 09/04/18 CT chest: multi-focal pneumonia of right middle lobe and lingula - 09/05/18 started azithromycin (Rocephin not given due to penicillin allergy) 2. Asthma exacerbation - Albuterol, steroids, Singulair started Objective - Vital Signs/Intake and Output Vital Signs (last 24 hours): Temp Pulse Resp BP Pulse Ox 97.8 F 101 H 20 114/77 95 09/05/18 15:05 09/05/18 15:05 09/05/18 15:05 09/05/18 15:05 09/05/18 15:05 - Medications Medications: Current Medications Acetaminophen (Tylenol 325mg Tab) 650 mg PO Q6 PRN PRN Reason: Pain, moderate (4-7) Last Admin: 09/05/18 08:14 Dose: 650 mg Albuterol/Ipratropium (Duoneb 3 Mg/0.5 Mg (3 Ml) Ud) 3 ml INH RQ2 PRN PRN Reason: Shortness of Breath Last Admin: 09/05/18 02:20 Dose: 3 ml Enoxaparin Sodium (Lovenox) 40 mg SC DAILY [facility] Last Admin: 09/05/18 10:42 Dose: 40 mg Fluticasone/Vilanterol (Breo Ellipta 100-25 Mcg Inh) 1 puff INH RQD [facility] Guaifenesin/Dextromethorphan (Robitussin Dm) 10 ml PO Q4H PRN PRN Reason: Cough and congestion Last Admin: 09/05/18 16:20 Dose: 10 ml Moxifloxacin HCl (Avelox Iv 400mg/250ml Ns) 400 mg in 250 mls @ 167 mls/hr IVPB Q24H JOSE ARMANDO; Protocol Lactobacillus Acidophilus (Bacid Acidophilus) 1 cap PO BID [facility] Last Admin: 09/05/18 17:44 Dose: 1 cap Methylprednisolone (Solu-Medrol) 40 mg IVP DAILY [facility] Montelukast Sodium (Singulair) 10 mg PO HS JOSE ARMANDO Pantoprazole Sodium (Protonix Inj) 40 mg IVP DAILY [facility] Last Admin: 09/05/18 10:37 Dose: 40 mg Pneumococcal Polyvalent Vaccine (Pneumovax 23 Vaccine) 0.5 ml IM .ONCE ONE Stop: 09/07/18 10:01 - Labs Labs: 09/05/18 08:23 09/05/18 08:23
[2018-09-05 19:26] LABS: STREP PNEUMONIAE NEGATIVE (NEGATIVE)
--- NOTE | 2018-09-05 23:17 | CARD ---
APPROVED REPORT Date of service: 09/04/2018 EKG Measurement Heart [id number] <Conclusion> Sinus tachycardia Nonspecific T wave abnormality Abnormal ECG
--- NOTE | 2018-09-06 07:38 | CP.PCM.PN ---
<KayleeJovanny - Last Filed: 09/06/18 15:31> Subjective - Date & Time of Evaluation Date of Evaluation: 09/06/18 Time of Evaluation: 07:30 - Subjective Subjective: Jovanyn Page PGY1 Progress Note for Dr. Joiner Pt was examined at bedside this morning. She reports slight improvement in her shortness of breath and chest tightness. She reports continuation of her cough, which is productive with yellow sputum. Pt also complains of chills. She denies any dizziness, chest pain, abdominal pain, nausea, vomiting, diarrhea, dysuria. Objective - Vital Signs/Intake and Output Vital Signs (last 24 hours): Temp Pulse Resp BP Pulse Ox 97.7 F 73 20 109/67 97 09/05/18 23:30 09/05/18 23:30 09/05/18 23:30 09/05/18 23:30 09/05/18 23:30 Intake and Output: 09/06/18 09/06/18 06:59 18:59 Intake Total 350 Balance 350 - Medications Medications: Current Medications Acetaminophen (Tylenol 325mg Tab) 650 mg PO Q6 PRN PRN Reason: Pain, moderate (4-7) Last Admin: 09/05/18 08:14 Dose: 650 mg Albuterol/Ipratropium (Duoneb 3 Mg/0.5 Mg (3 Ml) Ud) 3 ml INH RQ2 PRN PRN Reason: Shortness of Breath Last Admin: 09/05/18 19:34 Dose: 3 ml Enoxaparin Sodium (Lovenox) 40 mg SC DAILY [facility] ARMANDO Last Admin: 09/05/18 10:42 Dose: 40 mg Fluticasone/Vilanterol (Breo Ellipta 100-25 Mcg Inh) 1 puff INH RQD JOSE ARMANDO Guaifenesin/Dextromethorphan (Robitussin Dm) 10 ml PO Q4H PRN PRN Reason: Cough and congestion Last Admin: 09/05/18 22:06 Dose: 10 ml Moxifloxacin HCl (Avelox Iv 400mg/250ml Ns) 400 mg in 250 mls @ 167 mls/hr IVPB Q24H JOSE ARMANDO; Protocol Lactobacillus Acidophilus (Bacid Acidophilus) 1 cap PO BID JOSE ARMANDO Last Admin: 09/05/18 17:44 Dose: 1 cap Methylprednisolone (Solu-Medrol) 40 mg IVP DAILY [facility] Montelukast Sodium (Singulair) 10 mg PO HS [facility] Last Admin: 09/05/18 22:06 Dose: 10 mg Pantoprazole Sodium (Protonix Inj) 40 mg IVP DAILY [facility] Last Admin: 09/05/18 10:37 Dose: 40 mg Pneumococcal Polyvalent Vaccine (Pneumovax 23 Vaccine) 0.5 ml IM .ONCE ONE Stop: 09/07/18 10:01 - Labs Labs: 09/05/18 08:23 09/05/18 08:23 - Constitutional Appears: Well, No Acute Distress - Head Exam Head Exam: ATRAUMATIC, NORMOCEPHALIC - Eye Exam Eye Exam: EOMI, PERRL Pupil Exam: NORMAL ACCOMODATION - ENT Exam ENT Exam: Mucous Membranes Moist - Respiratory Exam Respiratory Exam: Decreased Breath Sounds, Wheezes, NORMAL BREATHING PATTERN. absent: Rhonchi Additional comments: mild inspiratory wheezes in R upper and lower lung [place]. decreased breath sounds b/l - Cardiovascular Exam Cardiovascular Exam: REGULAR RHYTHM, +S1, +S2. absent: Gallop, Rubs, Murmur - GI/Abdominal Exam GI & Abdominal Exam: Soft, Normal Bowel Sounds. absent: Distended, Firm, Tenderness - Extremities Exam Extremities Exam: Normal Inspection. absent: Pedal Edema - Neurological Exam Neurological Exam: Alert, Awake, Oriented x3 - Psychiatric Exam Psychiatric exam: Normal Affect, Normal Mood - Skin Skin Exam: Normal Color Assessment and Plan - Assessment and Plan (Free Text) Assessment: Patient is a 48 year old female with past medical history of asthma who presented with chest tightness, productive cough, fevers/chills. Found to have multi-focal pneumonia. Plan: Community Acquired Pneumonia - afebrile - leukocytosis, likely secondary to steroid administration - CT Chest: Right middle lobe and lingular nodular and streaky opacities suspected to reflect multifocal pneumonia. - CXR: Bilateral hilar prominence. Mild atelectasis/infiltrate silhouetting the right heart border, right middle lobe. 5 mm nodular opacity within the lateral left lower lobe possibly related to confluence of shadows however pulmonary nodule is not excluded - high flow O2 q4h - supplemental O2 NC PRN - Antibiotics: Avelox 400mg IVPB daily (09/05) - Influenza negative - mycoplasma pending - Urine Legionella neg, strep pneumonia neg - Pulmonology consulted, Dr Ramirez, help appreciated Asthma Exacerbation - Duonebs Q2H prn shortness of breath - Solumedrol 40mg IVP daily - Singulair 10mg PO HS - Breo 100-25mcg 1 INH daily - high flow O2 q4h - Pulmonology consulted, Dr Ramirez, help appreciated Microcytic Anemia - Hgb 10.5 today, asymptomatic - Low iron and % saturation - Likely due to Iron deficiency - Patient denies history of heavy periods, blood in stools - Once pneumonia resolves, can start ferrous sulfate 325mg PO daily GI/DVT ppx: Protonix 40mg IVP daily Lovenox 40mg SC daily Regular Diet Dispo: Pt still complains of shortness of breath with activity. Will re-eval tomorrow for possible d/c on oral antibiotics. Pt seen and plan discussed with Dr Joiner <Shelton Joiner - Last Filed: 09/07/18 19:54> Objective - Vital Signs/Intake and Output Vital Signs (last 24 hours): Temp Pulse Resp BP Pulse Ox 97.9 F 79 18 96/66 L 95 09/07/18 15:00 09/07/18 15:00 09/07/18 15:00 09/07/18 15:00 09/07/18 15:00 - Medications Medications: Current Medications Acetaminophen (Tylenol 325mg Tab) 650 mg PO Q6 PRN PRN Reason: Pain, moderate (4-7) Last Admin: 09/05/18 08:14 Dose: 650 mg Albuterol/Ipratropium (Duoneb 3 Mg/0.5 Mg (3 Ml) Ud) 3 ml INH RQ2 PRN PRN Reason: Shortness of Breath Last Admin: 09/06/18 13:39 Dose: 3 ml Enoxaparin Sodium (Lovenox) 40 mg SC DAILY [facility] ARMANDO Last Admin: 09/07/18 10:19 Dose: 40 mg Fluticasone/Vilanterol (Breo Ellipta 100-25 Mcg Inh) 1 puff INH RQD JOSE ARMANDO Last Admin: 09/07/18 11:10 Dose: Not Given Guaifenesin/Dextromethorphan (Robitussin Dm) 10 ml PO Q4H PRN PRN Reason: Cough and congestion Last Admin: 09/07/18 10:19 Dose: 10 ml Moxifloxacin HCl (Avelox Iv 400mg/250ml Ns) 400 mg in 250 mls @ 167 mls/hr IVPB Q24H JOSE ARMANDO; Protocol Last Admin: 09/07/18 10:19 Dose: 167 mls/hr Lactobacillus Acidophilus (Bacid Acidophilus) 1 cap PO BID JOSE ARMANDO Last Admin: 09/07/18 18:48 Dose: 1 cap Methylprednisolone (Solu-Medrol) 40 mg IVP DAILY JOSE ARMANDO Last Admin: 09/07/18 10:19 Dose: 40 mg Montelukast Sodium (Singulair) 10 mg PO HS JOSE ARMANDO Last Admin: 09/06/18 22:24 Dose: 10 mg Pantoprazole Sodium (Protonix Ec Tab) 40 mg PO DAILY [facility]SE ARMANDO Last Admin: 09/07/18 10:19 Dose: 40 mg - Labs Labs: 09/07/18 08:02 09/07/18 08:02 Attending/Attestation - Attestation I have personally seen and examined this patient.: Yes I have fully participated in the care of the patient.: Yes I have reviewed all pertinent clinical information, including history, physical exam and plan: Yes Notes (Text): Not feeling well today as per pt seen and examined spoke to Dr Ramirez has bilateral rhonchi,continue avelox ,steroid and neb Not stable for discharge today follow tomorrow
[2018-09-06] MEDS: Albuterol-Ipratrop 3 mg / 0.5 (3 ml) UD INH PRN ×2 (07:42→13:39)
[2018-09-06 07:55] LABS: BASO # 0.1 K/uL (0.0-0.2); BASO % 0.6 % (0.0-2.0); HEMOGLOBIN 10.5 g/dL (11.0-16.0); MEAN CELL VOLUME 75.3 fL (81.0-99.0); MEAN CORPUSCULAR HEMOGLOBIN 24.1 pg (27.0-31.0); MEAN PLATELET VOLUME 8.2 fL (7.2-11.7); MONO # 1.2 K/uL (0.0-0.8); MONO % 7.3 % (0.0-10.0); NEUT # 13.2 K/uL (1.8-7.0); NEUT % 80.1 % (50.0-75.0); RBC 4.36 Mil/uL (3.80-5.20); RED CELL DISTRIBUTION WIDTH 17.9 % (11.5-14.5)
[2018-09-06 08:04] LABS: WHITE BLOOD COUNT 16.4 K/uL (4.8-10.8)
[2018-09-06 08:23] LABS: ALB/GLOB RATIO 1.1 (1.0-2.1); ALT/SGPT 19 U/L (9-52); AST/SGOT 20 U/L (14-36); BLOOD UREA NITROGEN 16 mg/dL (7-17); CALCIUM 9.4 mg/dl (8.6-10.4); GFR NON-AFRICAN AMERICAN > 60
[2018-09-06] MEDS: Pantoprazole 40 mg EC Tab PO SCH (09:38)
[2018-09-06] MEDS: Enoxaparin 40 mg Syringe SC SCH (09:47)
[2018-09-06] MEDS: MethylPREDNISolone 40 mg Vial IVP SCH (09:47)
[2018-09-06] MEDS: Moxifloxacin IV 400mg/250ml NS 400 MG/250 ML BAG IVPB SCH (09:47)
[2018-09-06] MEDS: guaiFENesin DM 200 mg-20 mg/10 ml UD PO PRN (09:48)
[2018-09-06] MEDS: Lactobacillus Acidophilus 500 MU Cap PO SCH ×2 (11:57→17:34)
[2018-09-06] MEDS: Fluticasone-Vilanterol 100/25mcg Diskus INH SCH (13:39)
--- NOTE | 2018-09-06 17:45 | CP.PCM.PN ---
Subjective - Date & Time of Evaluation Date of Evaluation: 09/06/18 Time of Evaluation: 12:25 - Subjective Subjective: Patient seen and examined at bedside. Patient states that her SOB has improved with the nebulizer treatments but has developed a persistent productive cough with yellow sputum which kept her up last night. Denies chest pain. Exam: Lungs - diminished breath sounds bilaterally with scattered wheezes A&P 1. Pneumonia - 09/04/18 CXR: mild atelectasis/infiltrate at right middle lobe along with a 5 mm nodular opacity in the left lower lobe - 09/04/18 CT chest: multi-focal pneumonia of right middle lobe and lingula - 09/05/18 started azithromycin - 09/06/18 started Avelox (azithro d/elijah) 2. Asthma exacerbation - Albuterol, steroids, Singulair started Objective - Vital Signs/Intake and Output Vital Signs (last 24 hours): Temp Pulse Resp BP Pulse Ox 97.9 F 100 H 20 94/57 L 96 09/06/18 15:02 09/06/18 15:02 09/06/18 15:02 09/06/18 15:02 09/06/18 15:02 Intake and Output: 09/06/18 09/06/18 06:59 18:59 Intake Total 350 Balance 350 - Medications Medications: Current Medications Acetaminophen (Tylenol 325mg Tab) 650 mg PO Q6 PRN PRN Reason: Pain, moderate (4-7) Last Admin: 09/05/18 08:14 Dose: 650 mg Albuterol/Ipratropium (Duoneb 3 Mg/0.5 Mg (3 Ml) Ud) 3 ml INH RQ2 PRN PRN Reason: Shortness of Breath Last Admin: 09/06/18 13:39 Dose: 3 ml Enoxaparin Sodium (Lovenox) 40 mg SC DAILY [facility] Last Admin: 09/06/18 09:47 Dose: 40 mg Fluticasone/Vilanterol (Breo Ellipta 100-25 Mcg Inh) 1 puff INH RQD [facility] ARMANDO Last Admin: 09/06/18 13:39 Dose: Not Given Guaifenesin/Dextromethorphan (Robitussin Dm) 10 ml PO Q4H PRN PRN Reason: Cough and congestion Last Admin: 09/06/18 09:48 Dose: 10 ml Moxifloxacin HCl (Avelox Iv 400mg/250ml Ns) 400 mg in 250 mls @ 167 mls/hr IVPB Q24H [facility]; Protocol Last Admin: 09/06/18 09:47 Dose: 167 mls/hr Lactobacillus Acidophilus (Bacid Acidophilus) 1 cap PO BID [facility] Last Admin: 09/06/18 17:34 Dose: 1 cap Methylprednisolone (Solu-Medrol) 40 mg IVP DAILY [facility] Last Admin: 09/06/18 09:47 Dose: 40 mg Montelukast Sodium (Singulair) 10 mg PO HS [facility] Last Admin: 09/05/18 22:06 Dose: 10 mg Pantoprazole Sodium (Protonix Ec Tab) 40 mg PO DAILY [facility] Last Admin: 09/06/18 09:38 Dose: 40 mg Pneumococcal Polyvalent Vaccine (Pneumovax 23 Vaccine) 0.5 ml IM .ONCE ONE Stop: 09/07/18 10:01 - Labs Labs: 09/06/18 07:40 09/06/18 07:40
[2018-09-07 08:24] LABS: BASO # 0.1 K/uL (0.0-0.2); BASO % 0.6 % (0.0-2.0); EOS # 0.1 K/uL (0.0-0.7); HEMOGLOBIN 10.2 g/dL (11.0-16.0); LYMPH # 2.9 K/uL (1.0-4.3); LYMPH % 27.8 % (20.0-40.0); MEAN CELL VOLUME 75.4 fL (81.0-99.0); MEAN CORPUSCULAR HEMOGLOBIN 23.5 pg (27.0-31.0); MEAN CORPUSCULAR HGB CONC 31.2 g/dL (33.0-37.0); MEAN PLATELET VOLUME 8.4 fL (7.2-11.7); MONO % 9.1 % (0.0-10.0); NEUT # 6.5 K/uL (1.8-7.0); NEUT % 61.5 % (50.0-75.0); NRBC % 0.2 % (0.0-2.0); RBC 4.34 Mil/uL (3.80-5.20); RED CELL DISTRIBUTION WIDTH 17.8 % (11.5-14.5); WHITE BLOOD COUNT 10.5 K/uL (4.8-10.8)
[2018-09-07 08:32] LABS: ALB/GLOB RATIO 1.1 (1.0-2.1); ALBUMIN 3.7 g/dL (3.5-5.0); ALT/SGPT 20 U/L (9-52); AST/SGOT 21 U/L (14-36); BLOOD UREA NITROGEN 20 mg/dL (7-17); CALCIUM 8.7 mg/dl (8.6-10.4); GFR NON-AFRICAN AMERICAN > 60
[2018-09-07] MEDS ORDERED: Pneumococcal 23-Valent Vaccine IM ONE (10:00)
[2018-09-07] MEDS: Pantoprazole 40 mg EC Tab PO SCH (10:19)
[2018-09-07] MEDS: Lactobacillus Acidophilus 500 MU Cap PO SCH ×2 (10:19→18:48)
[2018-09-07] MEDS: Enoxaparin 40 mg Syringe SC SCH (10:19)
[2018-09-07] MEDS: Moxifloxacin IV 400mg/250ml NS 400 MG/250 ML BAG IVPB SCH (10:19)
[2018-09-07] MEDS: MethylPREDNISolone 40 mg Vial IVP SCH (10:19)
[2018-09-07] MEDS: guaiFENesin DM 200 mg-20 mg/10 ml UD PO PRN (10:19)
[2018-09-07] MEDS: Fluticasone-Vilanterol 100/25mcg Diskus INH SCH (11:10)
--- NOTE | 2018-09-07 16:47 | CP.PCM.PN ---
"<Brandon Taylor - Last Filed: 09/07/18 16:39> Subjective - Date & Time of Evaluation Date of Evaluation: 09/07/18 Time of Evaluation: 16:39 - Subjective Subjective: Patient seen and examined at bedside. No overnight events reported. She states that she still feels slight short of breath although it has improved. She also complains of cough. She denies any fevers, chills, chest pain, abdominal pain, nausea, vomiting, changes in bowel habits or urination. Objective - Vital Signs/Intake and Output Vital Signs (last 24 hours): Temp Pulse Resp BP Pulse Ox 97.9 F 79 18 96/66 L 95 09/07/18 15:00 09/07/18 15:00 09/07/18 15:00 09/07/18 15:00 09/07/18 15:00 - Medications Medications: Current Medications Acetaminophen (Tylenol 325mg Tab) 650 mg PO Q6 PRN PRN Reason: Pain, moderate (4-7) Last Admin: 09/05/18 08:14 Dose: 650 mg Albuterol/Ipratropium (Duoneb 3 Mg/0.5 Mg (3 Ml) Ud) 3 ml INH RQ2 PRN PRN Reason: Shortness of Breath Last Admin: 09/06/18 13:39 Dose: 3 ml Enoxaparin Sodium (Lovenox) 40 mg SC DAILY [facility] Last Admin: 09/07/18 10:19 Dose: 40 mg Fluticasone/Vilanterol (Breo Ellipta 100-25 Mcg Inh) 1 puff INH RQD [facility] Last Admin: 09/07/18 11:10 Dose: Not Given Guaifenesin/Dextromethorphan (Robitussin Dm) 10 ml PO Q4H PRN PRN Reason: Cough and congestion Last Admin: 09/07/18 10:19 Dose: 10 ml Moxifloxacin HCl (Avelox Iv 400mg/250ml Ns) 400 mg in 250 mls @ 167 mls/hr IVPB Q24H [facility]; Protocol Last Admin: 09/07/18 10:19 Dose: 167 mls/hr Lactobacillus Acidophilus (Bacid Acidophilus) 1 cap PO BID [facility] Last Admin: 09/07/18 10:19 Dose: 1 cap Methylprednisolone (Solu-Medrol) 40 mg IVP DAILY [facility] Last Admin: 09/07/18 10:19 Dose: 40 mg Montelukast Sodium (Singulair) 10 mg PO HS [facility] Last Admin: 09/06/18 22:24 Dose: 10 mg Pantoprazole Sodium (Protonix Ec Tab) 40 mg PO DAILY [facility] Last Admin: 09/07/18 10:19 Dose: 40 mg - Labs Labs: 09/07/18 08:02 09/07/18 08:02 - Constitutional Appears: Well, No Acute Distress - Head Exam Head Exam: ATRAUMATIC, NORMAL INSPECTION, NORMOCEPHALIC - Eye Exam Eye Exam: EOMI, Normal appearance - ENT Exam ENT Exam: Mucous Membranes Moist - Respiratory Exam Respiratory Exam: Decreased Breath Sounds, Clear to Ausculation Bilateral. absent: Accessory Muscle Use, Wheezes - Cardiovascular Exam Cardiovascular Exam: RRR, +S1, +S2 - GI/Abdominal Exam GI & Abdominal Exam: Soft. absent: Tenderness - Extremities Exam Extremities Exam: Normal Capillary Refill. absent: Pedal Edema - Neurological Exam Neurological Exam: Alert, Awake, Oriented x3 - Psychiatric Exam Psychiatric exam: Normal Affect, Normal Mood - Skin Skin Exam: Dry, Intact, Normal Color, Warm Assessment and Plan - Assessment and Plan (Free Text) Assessment: Patient is a 48 year old female with past medical history of asthma who presented with chest tightness, productive cough, fevers/chills. Found to have multi-focal pneumonia. Plan: Community Acquired Pneumonia - afebrile - leukocytosis, likely secondary to steroid administration - CT Chest: Right middle lobe and lingular nodular and streaky opacities suspected to reflect multifocal pneumonia. - CXR: Bilateral hilar prominence. Mild atelectasis/infiltrate silhouetting the right heart border, right middle lobe. 5 mm nodular opacity within the lateral left lower lobe possibly related to confluence of shadows however pulmonary nodule is not excluded - high flow O2 q4h - supplemental O2 NC PRN - Antibiotics: Avelox 400mg IVPB daily - Influenza negative | ProCal - Negative. - mycoplasma Pending - Urine Legionella neg, strep pneumonia neg - Pulmonology consulted, Dr Ramirez, help appreciated Asthma Exacerbation - Duonebs Q2H prn shortness of breath - Solumedrol 40mg IVP daily - Singulair 10mg PO HS - Breo 100-25mcg 1 INH daily - Pulmonology consulted, Dr Ramirez, help appreciated Microcytic Anemia (Stable) - Hgb 10.5 today, asymptomatic - Low iron and % saturation - Likely due to Iron deficiency - Patient denies history of heavy periods, blood in stools - Once pneumonia resolves, can start ferrous sulfate 325mg PO daily GI/DVT ppx: Protonix 40mg IVP daily Lovenox 40mg SC daily Regular Diet Dispo: Pt still complains of shortness of breath with activity. Will re-eval tomorrow for possible d/c on oral antibiotics. Patient will go home with Moxifloxacin 400mg PO Q24H for 5-7 days. Pt seen and plan discussed with Dr Rhys Taylor, PGY-2 <Shelton Joiner - Last Filed: 09/07/18 19:53> Objective - Vital Signs/Intake and Output Vital Signs (last 24 hours): Temp Pulse Resp BP Pulse Ox 97.9 F 79 18 96/66 L 95 09/07/18 15:00 09/07/18 15:00 09/07/18 15:00 09/07/18 15:00 09/07/18 15:00 - Medications Medications: Current Medications Acetaminophen (Tylenol 325mg Tab) 650 mg PO Q6 PRN PRN Reason: Pain, moderate (4-7) Last Admin: 09/05/18 08:14 Dose: 650 mg Albuterol/Ipratropium (Duoneb 3 Mg/0.5 Mg (3 Ml) Ud) 3 ml INH RQ2 PRN PRN Reason: Shortness of Breath Last Admin: 09/06/18 13:39 Dose: 3 ml Enoxaparin Sodium (Lovenox) 40 mg SC DAILY [facility] Last Admin: 09/07/18 10:19 Dose: 40 mg Fluticasone/Vilanterol (Breo Ellipta 100-25 Mcg Inh) 1 puff INH RQD [facility] Last Admin: 09/07/18 11:10 Dose: Not Given Guaifenesin/Dextromethorphan (Robitussin Dm) 10 ml PO Q4H PRN PRN Reason: Cough and congestion Last Admin: 09/07/18 10:19 Dose: 10 ml Moxifloxacin HCl (Avelox Iv 400mg/250ml Ns) 400 mg in 250 mls @ 167 mls/hr IVPB Q24H [facility]; Protocol Last Admin: 09/07/18 10:19 Dose: 167 mls/hr Lactobacillus Acidophilus (Bacid Acidophilus) 1 cap PO BID [facility] Last Admin: 09/07/18 18:48 Dose: 1 cap Methylprednisolone (Solu-Medrol) 40 mg IVP DAILY [facility] Last Admin: 09/07/18 10:19 Dose: 40 mg Montelukast Sodium (Singulair) 10 mg PO HS [facility] Last Admin: 09/06/18 22:24 Dose: 10 mg Pantoprazole Sodium (Protonix Ec Tab) 40 mg PO DAILY [facility] Last Admin: 09/07/18 10:19 Dose: 40 mg - Labs Labs: 09/07/18 08:02 09/07/18 08:02 Attending/Attestation - Attestation I have personally seen and examined this patient.: Yes I have fully participated in the care of the patient.: Yes I have reviewed all pertinent clinical information, including history, physical exam and plan: Yes Notes (Text): Seen and examined,she is complaining of cough,sob and hypoxic on ambulation we will continue steroid and antibiotics with Neb keep her one more day to improve before discharge Possible discharge tomorrow of she improves"
[2018-09-08 01:45] VITALS: RESP 20
[2018-09-08] MEDS: Albuterol-Ipratrop 3 mg / 0.5 (3 ml) UD INH PRN ×2 (07:50→13:40)
[2018-09-08] MEDS: Fluticasone-Vilanterol 100/25mcg Diskus INH SCH (07:50)
[2018-09-08 08:27] VITALS: BP 92/60; PULSE 70; TEMP 98.1; O2SAT 98
[2018-09-08 09:20] LABS: BASO % 0.6 % (0.0-2.0); EOS # 0.1 K/uL (0.0-0.7); EOS % 1.3 % (0.0-4.0); HEMOGLOBIN 10.5 g/dL (11.0-16.0); LYMPH # 3.4 K/uL (1.0-4.3); LYMPH % 40.3 % (20.0-40.0); MEAN CELL VOLUME 75.4 fL (81.0-99.0); MEAN CORPUSCULAR HEMOGLOBIN 24.1 pg (27.0-31.0); MEAN PLATELET VOLUME 7.4 fL (7.2-11.7); MONO # 0.6 K/uL (0.0-0.8); MONO % 6.6 % (0.0-10.0); NEUT # 4.3 K/uL (1.8-7.0); NEUT % 51.2 % (50.0-75.0); RBC 4.35 Mil/uL (3.80-5.20); RED CELL DISTRIBUTION WIDTH 17.8 % (11.5-14.5); WHITE BLOOD COUNT 8.4 K/uL (4.8-10.8)
[2018-09-08 09:49] LABS: ALB/GLOB RATIO 1.2 (1.0-2.1); ALBUMIN 3.8 g/dL (3.5-5.0); ALT/SGPT 20 U/L (9-52); AST/SGOT 15 U/L (14-36); BLOOD UREA NITROGEN 17 mg/dL (7-17); CALCIUM 8.6 mg/dl (8.6-10.4); GFR NON-AFRICAN AMERICAN > 60
[2018-09-08] MEDS: Pantoprazole 40 mg EC Tab PO SCH (10:51)
[2018-09-08] MEDS: MethylPREDNISolone 40 mg Vial IVP SCH (10:51)
[2018-09-08] MEDS: Lactobacillus Acidophilus 500 MU Cap PO SCH (10:51)
[2018-09-08] MEDS: Moxifloxacin IV 400mg/250ml NS 400 MG/250 ML BAG IVPB SCH (10:51)
[2018-09-08] MEDS: guaiFENesin DM 200 mg-20 mg/10 ml UD PO PRN (10:51)
[2018-09-08] MEDS: Enoxaparin 40 mg Syringe SC SCH (10:52)
--- NOTE | 2018-09-08 12:33 | CP.PCM.DIS ---
Provider - Provider Date of Admission: 09/04/18 20:27 Attending physician: Shelton Joiner MD Consults: 09/05/18 04:27 Inpatient [employer] Core Measures Referral Routine Comment: Physician Instructions: Reason For Exam: Pneumonia 09/05/18 06:08 Pulmonology Consult Routine Comment: Consulting Provider: Yuniel Ramirez Consulting Physician: Yuniel Ramirez Reason for Consult: Asthma exacerbation Time Spent in preparation of Discharge (in minutes): 35 Hospital Course - Lab Results Lab Results: Micro Results 09/04/18 20:07 Blood Blood Culture - Preliminary NO GROWTH AFTER 3 DAYS 09/04/18 20:07 Blood Blood Culture - Preliminary NO GROWTH AFTER 3 DAYS 09/07/18 00:24 Sputum Gram Stain - Final Most Recent Lab Values WBC 8.4 K/uL (4.8-10.8) 09/08/18 09:16 RBC 4.35 Mil/uL (3.80-5.20) 09/08/18 09:16 Hgb 10.5 g/dL (11.0-16.0) L 09/08/18 09:16 Hct 32.8 % (34.0-47.0) L 09/08/18 09:16 MCV 75.4 fL (81.0-99.0) L 09/08/18 09:16 MCH 24.1 pg (27.0-31.0) L 09/08/18 09:16 MCHC 32.0 g/dL (33.0-37.0) L 09/08/18 09:16 RDW 17.8 % (11.5-14.5) H 09/08/18 09:16 Plt Count 425 K/uL (130-400) H 09/08/18 09:16 MPV 7.4 fL (7.2-11.7) 09/08/18 09:16 Neut % (Auto) 51.2 % (50.0-75.0) 09/08/18 09:16 Lymph % (Auto) 40.3 % (20.0-40.0) H 09/08/18 09:16 [place] % (Auto) 6.6 % (0.0-10.0) 09/08/18 09:16 Eos % (Auto) 1.3 % (0.0-4.0) 09/08/18 09:16 Baso % (Auto) 0.6 % (0.0-2.0) 09/08/18 09:16 Neut # (Auto) 4.3 K/uL (1.8-7.0) 09/08/18 09:16 Lymph # (Auto) 3.4 K/uL (1.0-4.3) 09/08/18 09:16 [place] # (Auto) 0.6 K/uL (0.0-0.8) 09/08/18 09:16 Eos # (Auto) 0.1 K/uL (0.0-0.7) 09/08/18 09:16 Baso # (Auto) 0.0 K/uL (0.0-0.2) 09/08/18 09:16 Neutrophils % (Manual) 91 % (50-75) H 09/05/18 08:23 Lymphocytes % (Manual) 8 % (20-40) L 09/05/18 08:23 Monocytes % (Manual) 1 % (0-10) 09/05/18 08:23 Platelet Estimate Slightly increased (NORMAL) H 09/05/18 08:23 Hypochromasia (manual) Slight 09/05/18 08:23 Anisocytosis (manual) Slight 09/05/18 08:23 Ovalocytes Slight 09/05/18 08:23 Retic Count 1.0 % (0.5-1.5) 09/05/18 08:23 Sodium 135 mmol/L (132-148) 09/08/18 09:16 Potassium 3.9 mmol/L (3.6-5.2) 09/08/18 09:16 Chloride 100 mmol/L (98-107) 09/08/18 09:16 Carbon Dioxide 28 mmol/L (22-30) 09/08/18 09:16 Anion Gap 12 (10-20) 09/08/18 09:16 BUN 17 mg/dL (7-17) 09/08/18 09:16 Creatinine 0.7 mg/dL (0.7-1.2) 09/08/18 09:16 Est GFR ( Amer) > 60 09/08/18 09:16 Est GFR (Non-Af Amer) > 60 09/08/18 09:16 Random Glucose 179 mg/dL (65-105) H D 09/08/18 09:16 Calcium 8.6 mg/dl (8.6-10.4) 09/08/18 09:16 Phosphorus 3.4 mg/dL (2.5-4.5) 09/08/18 09:16 Magnesium 2.1 mg/dL (1.6-2.3) 09/08/18 09:16 Iron 40 ug/dL (37-170) 09/05/18 12:00 TIBC 427 ug/dL (250-450) 09/05/18 12:00 % Saturation 9 (20-55) L 09/05/18 12:00 Transferrin 324.13 mg/dL (206-381) 09/05/18 10:00 Ferritin 9.1 ng/mL 09/05/18 08:23 Total Bilirubin 0.4 mg/dL (0.2-1.3) 09/08/18 09:16 AST 15 U/L (14-36) 09/08/18 09:16 ALT 20 U/L (9-52) 09/08/18 09:16 Alkaline Phosphatase 74 U/L (38-126) 09/08/18 09:16 Total Protein 7.0 g/dL (6.3-8.3) 09/08/18 09:16 Albumin 3.8 g/dL (3.5-5.0) 09/08/18 09:16 Globulin 3.2 gm/dL (2.2-3.9) 09/08/18 09:16 Albumin/Globulin Ratio 1.2 (1.0-2.1) 09/08/18 09:16 Procalcitonin 0.07 NG/ML (0.19-0.49) L 09/05/18 08:23 Influenza Typ A,B (EIA) Negative for flu a/b (NEGATIVE) 09/04/18 18:39 Ur L.pneumophila Ag Negative (NEGATIVE) 09/05/18 18:32 Mycoplasma pneumon IgM 76 U/mL (<770) 09/05/18 08:23 S. pneumoniae Antigen Negative (NEGATIVE) 09/05/18 Unknown - Hospital Course Hospital Course: 48 year old female with past medical history of asthma admitted for evaluation and treatment of asthma exacerbation 2/2 to Community Acquired Pneumonia. Patient treated inpatient with Avelox, and steroids. She remained afebrile and without Leukocytosis for 48 hours. Upon discharge, patient was sent home with Albuterol PRN, Moxifloxacin 400mg tab PO Daily, and Medrol Dose pack. Patient asked to keep track how often she uses her inhaler and night time awakening. She is to follow up at the [facility]. Patient is agreeable to plan and medications. Relevant studies below. - CT Chest: Right middle lobe and lingular nodular and streaky opacities suspected to reflect multifocal pneumonia. - CXR: Bilateral hilar prominence. Mild atelectasis/infiltrate silhouetting the right heart border, right middle lobe. 5 mm nodular opacity within the lateral left lower lobe possibly related to confluence of shadows however pulmonary nodule is not excluded - high flow O2 q4h Discharge Exam - Head Exam Head Exam: ATRAUMATIC, NORMAL INSPECTION, NORMOCEPHALIC - Additional Findings Additional findings: - Constitutional Appears: Well, No Acute Distress - Head Exam Head Exam: ATRAUMATIC, NORMAL INSPECTION, NORMOCEPHALIC - Eye Exam Eye Exam: EOMI, Normal appearance - ENT Exam ENT Exam: Mucous Membranes Moist - Respiratory Exam Respiratory Exam: Clear to Ausculation Bilateral. absent: Accessory Muscle Use, Wheezes, Decreased Breath Sounds. - Cardiovascular Exam Cardiovascular Exam: RRR, +S1, +S2 - GI/Abdominal Exam GI & Abdominal Exam: Soft. absent: Tenderness - Extremities Exam Extremities Exam: Normal Capillary Refill. absent: Pedal Edema - Neurological Exam Neurological Exam: Alert, Awake, Oriented x3 - Psychiatric Exam Psychiatric exam: Normal Affect, Normal Mood - Skin Skin Exam: Dry, Intact, Normal Color, Warm Discharge Plan - Discharge Medications Prescriptions: Albuterol HFA [Ventolin HFA 90 mcg/actuation (8 g)] 2 puff IH Q4H PRN #1 inhaler PRN Reason: Wheezing Methylprednisolone [Medrol Dose Pack (21 tabs)] 4 mg PO ASDIR #21 mg Moxifloxacin [Avelox] 400 mg PO DAILY #7 tab - Follow Up Plan Condition: STABLE Disposition: HOME/ ROUTINE Instructions: Pneumonia in Adults, Moxifloxacin (Systemic), Albuterol, Methylprednisolone, Asthma (ED) Additional Instructions: Please follow up at our [facility] to establish care. The number is [phone]. Please call as soon as possible and make an appointment. Please take medications as directed. Please take antibiotics to completion even if symptoms resolve. If your symptoms return or worsen, please return the the E.R. Referrals: [facility] at [facility] [Outside]
== END 2018-09-08 15:17 | disposition home or self-care (01) | DRG 139 ==
LOC: C.ER 15:32 → C.9E 20:27 → C.6T 21:42
PROVIDERS: ADMIT Internal Medicine; ATTEND Internal Medicine
DX: J18.8 Other pneumonia, unspecified organism (principal); J45.901 Unspecified asthma with (acute) exacerbation; D50.9 Iron deficiency anemia, unspecified; J98.11 Atelectasis; R09.02 Hypoxemia; Z82.61 Family history of arthritis; Z87.01 Personal history of pneumonia (recurrent); Z87.891 Personal history of nicotine dependence; Z88.0 Allergy status to penicillin; Z98.51 Tubal ligation status; Z82.5 Family history of asthma and other chronic lower respiratory diseases; Z83.3 Family history of diabetes mellitus; Z80.6 Family history of leukemia

== ENCOUNTER 2018-12-13 19:31 | Observation (INO) | payer MEDICAID ==
[2018-12-13 19:31] VITALS: BMI 29.9
[2018-12-13] MEDS ORDERED: Albuterol-Ipratrop 3 mg / 0.5 (3 ml) UD ONE ×4 (19:56→22:14)
[2018-12-13] MEDS ORDERED: Albuterol-Ipratrop 3 mg / 0.5 (3 ml) UD INH STA ×3 (19:58→22:04)
--- NOTE | 2018-12-13 20:06 | C.PDOC ---
History Of Present Illness 48 year old female with PMHx of asthma presents to the ED c/o SOB triggered by mild viral syndrome and seasonal allergies Patient reports she has never been intubated, she reports she took Robitussin cough medication this morning. Fabio bolivar reports she also used her albuterol nebulizer with 5 single treatments with no improvement. Patient reports her SOB worsens when ambulating. Patient denies fever, chills, CP, palpitations, rash, headache, weakness, numbness. Time Seen by Provider: 12/13/18 19:52 Chief Complaint (Nursing): Shortness Of Breath History Per: Patient History/Exam Limitations: no limitations Onset/Duration Of Symptoms: Days Current Symptoms Are (Timing): Still Present Initiating Event: Upper Respiratory Illness Quality: Tightness Exacerbating Factor(s): Coughing Current Respiratory Medications: Albuterol Recent travel outside of the [place]: No Additional History Per: Patient Past Medical History Reviewed: Historical Data, Nursing Documentation, Vital Signs Vital Signs: Last Vital Signs Temp 98.1 F 12/13/18 19:41 Pulse 98 H 12/13/18 19:41 Resp 20 12/13/18 19:41 BP 133/77 12/13/18 19:41 Pulse Ox 98 12/13/18 19:41 - Medical History PMH: Asthma, Bronchitis, Pneumonia Denies: Chronic Kidney Disease Surgical History: No Surg Hx Family History: States: Unknown Family Hx - Social History Hx Tobacco Use: No Hx Alcohol Use: No Hx Substance Use: No - Immunization History Hx Tetanus Toxoid Vaccination: No Hx Influenza Vaccination: No Hx Pneumococcal Vaccination: No Review Of Systems Constitutional: Negative for: Fever, Chills Cardiovascular: Negative for: Chest Pain Respiratory: Positive for: Cough, Shortness of Breath, Wheezing Gastrointestinal: Negative for: Nausea, Vomiting, Abdominal Pain Skin: Negative for: Rash Neurological: Negative for: Weakness, Numbness, Headache Physical Exam - Physical Exam Appears: Non-toxic, In Acute Distress Skin: Normal Color, Warm, Dry Head: Atraumatic, Normacephalic Eye(s): bilateral: Normal Inspection Ear(s): Bilateral: Normal Oral Mucosa: Moist Neck: Normal ROM, Supple Chest: Symmetrical Cardiovascular: Rhythm Regular Respiratory: No Rales, No Rhonchi, Wheezing (mild scattered ), Other (mild respiratory distress) Gastrointestinal/Abdominal: Soft, No Tenderness, No Guarding, No Rebound Extremity: Normal ROM, No Tenderness, No Swelling Neurological/Psych: Oriented x3, Normal Speech, Normal Cognition Gait: Steady ED Course And Treatment - Laboratory Results Result Diagrams: 12/13/18 21:45 12/13/18 21:45 O2 Sat by Pulse Oximetry: 98 (ON RA) Pulse Ox Interpretation: Normal Critical Care Time - Critical Care Note Total Time (in mins): 90 Documented critical care: time excludes all time spent performing seperately billable procedures. Medical Decision Making Medical Decision Making: Plan: * Duoneb * Pepcid 20 mg PO * Prednisone 40 mg PO Disposition Doctor Will See Patient In The: Hospital Counseled Patient/Family Regarding: Studies Performed, Diagnosis - Disposition Disposition: HOSPITALIZED Disposition Time: 16:00 Condition: GOOD - Clinical Impression Clinical Impression: Asthma - Scribe Statement The provider has reviewed the documentation as recorded by the Scribe Orlin Hernandez All medical record entries made by the Scribe were at my direction and personally dictated by me. I have reviewed the chart and agree that the record accurately reflects my personal performance of the history, physical exam, medical decision making, and the department course for this patient. I have also personally directed, reviewed, and agree with the discharge instructions and disposition.
[2018-12-13 21:56] LABS: BASO # 0.1 K/uL (0.0-0.2); BASO % 0.7 % (0.0-2.0); EOS # 0.2 K/uL (0.0-0.7); EOS % 2.1 % (0.0-4.0); HEMOGLOBIN 10.3 g/dL (11.0-16.0); LYMPH # 1.1 K/uL (1.0-4.3); LYMPH % 11.9 % (20.0-40.0); MEAN CORPUSCULAR HEMOGLOBIN 23.5 pg (27.0-31.0); MEAN CORPUSCULAR HGB CONC 32.5 g/dL (33.0-37.0); MEAN PLATELET VOLUME 7.9 fL (7.2-11.7); MONO # 0.6 K/uL (0.0-0.8); MONO % 5.9 % (0.0-10.0); NEUT # 7.5 K/uL (1.8-7.0); NEUT % 79.4 % (50.0-75.0); RBC 4.39 Mil/uL (3.80-5.20); RED CELL DISTRIBUTION WIDTH 19.2 % (11.5-14.5); WHITE BLOOD COUNT 9.4 K/uL (4.8-10.8)
[2018-12-13 22:01] LABS: MEAN CELL VOLUME 72.2 fL (81.0-99.0)
[2018-12-13 22:03] LABS: ALB/GLOB RATIO 1.2 (1.0-2.1); ALBUMIN 4.4 g/dL (3.5-5.0); AST/SGOT 17 U/L (14-36); BLOOD UREA NITROGEN 10 mg/dL (7-17); CALCIUM 9.5 mg/dl (8.6-10.4); GFR NON-AFRICAN AMERICAN > 60
[2018-12-13 22:05] LABS: ALT/SGPT < 6 U/L (9-52)
[2018-12-13] MEDS ORDERED: Magnesium Sulfate 1 gm in D5W 1 GM/100 ML BAG IV ONE ×2 (22:22→22:23)
[2018-12-13] MEDS ORDERED: Magnesium Sulfate 1 gm in D5W 2 GM/200 ML BAG IVPB ONE (22:44)
[2018-12-13] MEDS ORDERED: Potassium Chloride 20 mEq ER Tab PO ONE ×2 (22:45→22:48)
[2018-12-14] MEDS: MethylPREDNISolone 40 mg Vial IVP SCH ×3 (05:53→21:36)
--- NOTE | 2018-12-14 08:17 | RAD ---
Chest x-ray two views History: Shortness of breath. Comparison: 09/04/2018 Findings: Mild venous congestion. Bilateral hilar prominence. Patchy increased markings at the lung bases. Bibasilar breast and nipple shadows. Biapical pleural thickening with upper lobe granulomatous changes. Nodular densities at the left lung base may represent vessels on end. Heart size within normal limits. Degenerative changes in the spine. Impression: Mild venous congestion. Bilateral hilar prominence. Patchy increased markings at the lung bases. Bibasilar breast and nipple shadows. Biapical pleural thickening with upper lobe granulomatous changes. Nodular densities at the left lung base may represent vessels on end.
[2018-12-14] MEDS: Albuterol-Ipratrop 3 mg / 0.5 (3 ml) UD INH SCH ×3 (08:27→20:26)
[2018-12-14] MEDS: Fluticasone-Vilanterol 100/25mcg Diskus INH SCH (09:00)
[2018-12-14] MEDS: Enoxaparin 40 mg Syringe SC SCH (09:02)
[2018-12-14] MEDS: Pantoprazole 40 mg EC Tab PO SCH (09:02)
[2018-12-14] MEDS: Potassium Chloride 20 mEq ER Tab PO SCH (13:08)
--- NOTE | 2018-12-14 15:36 | CP.PCM.HP ---
Past Patient History - Past Medical History & Family History Past Medical History?: Yes - Past Social History Smoking Status: Never Smoked - CARDIAC Hx Cardiac Disorders: No - PULMONARY Hx Asthma: Yes Hx Bronchitis: Yes Hx Pneumonia: Yes - NEUROLOGICAL Hx Neurological Disorder: No - HEENT Hx HEENT Problems: No - RENAL Hx Chronic Kidney Disease: No - ENDOCRINE/METABOLIC Hx Endocrine Disorders: No - HEMATOLOGICAL/ONCOLOGICAL Hx Blood Disorders: No - INTEGUMENTARY Hx Dermatological Problems: No - MUSCULOSKELETAL/RHEUMATOLOGICAL Hx Falls: No - GASTROINTESTINAL Hx Gastrointestinal Disorders: No - GENITOURINARY/GYNECOLOGICAL Hx Genitourinary Disorders: No - PSYCHIATRIC Hx Substance Use: No - SURGICAL HISTORY Hx Surgeries: Yes Hx Tubal Ligation: Yes - ANESTHESIA Hx Anesthesia: Yes Hx Anesthesia Reactions: No Meds Allergies/Adverse Reactions: Allergies Allergy/AdvReac Type Severity Reaction Status Date / Time Penicillins Allergy Mild RASH Verified 12/13/18 19:46 Physical Exam - Constitutional Appears: Well - Head Exam Head Exam: ATRAUMATIC, NORMAL INSPECTION, NORMOCEPHALIC - Eye Exam Eye Exam: EOMI, Normal appearance, PERRL Pupil Exam: NORMAL ACCOMODATION, PERRL - ENT Exam ENT Exam: Mucous Membranes Moist, Normal Exam - Neck Exam Neck exam: Positive for: Normal Inspection - Respiratory Exam Respiratory Exam: Decreased Breath Sounds - Cardiovascular Exam Cardiovascular Exam: REGULAR RHYTHM, +S1, +S2 - GI/Abdominal Exam GI & Abdominal Exam: Diminished Bowel Sounds, Soft - Rectal Exam Rectal Exam: Deferred - Neurological Exam Neurological exam: Oriented x3 Results - Vital Signs Recent Vital Signs: Last Vital Signs Temp 97.6 F 12/14/18 07:10 Pulse 90 12/14/18 13:07 Resp 20 12/14/18 07:10 BP 114/70 12/14/18 07:10 Pulse Ox 96 12/14/18 07:10 - Labs Result Diagrams: 12/13/18 21:45 12/13/18 21:45 Labs: Laboratory Results - last 24 hr 12/13/18 12/13/18 21:45 21:45 WBC 9.4 RBC 4.39 Hgb 10.3 L Hct 31.7 L MCV 72.2 L D MCH 23.5 L MCHC 32.5 L RDW 19.2 H Plt Count 605 H D MPV 7.9 Neut % (Auto) 79.4 H Lymph % (Auto) 11.9 L Daw[place] % (Auto) 5.9 Eos % (Auto) 2.1 Baso % (Auto) 0.7 Neut # (Auto) 7.5 H Lymph # (Auto) 1.1 [place] # (Auto) 0.6 Eos # (Auto) 0.2 Baso # (Auto) 0.1 Sodium 136 Potassium 3.5 L Chloride 104 Carbon Dioxide 21 L Anion Gap 15 BUN 10 Creatinine 0.7 Est GFR ( Amer) > 60 Est GFR (Non-Af Amer) > 60 Random Glucose 167 H D Calcium 9.5 Total Bilirubin 0.3 AST 17 ALT < 6 L D Alkaline Phosphatase 91 Total Protein 8.0 Albumin 4.4 Globulin 3.6 Albumin/Globulin Ratio 1.2
[2018-12-14] MEDS: Moxifloxacin IV 400mg/250ml NS 400 MG/250 ML BAG IVPB SCH (18:05)
[2018-12-14] MEDS ORDERED: Potassium Chloride 20 mEq ER Tab PO ONE (22:48)
[2018-12-15] MEDS: Albuterol-Ipratrop 3 mg / 0.5 (3 ml) UD INH SCH ×4 (01:35→19:56)
[2018-12-15] MEDS: MethylPREDNISolone 40 mg Vial IVP SCH ×3 (05:31→21:40)
[2018-12-15] MEDS: Potassium Chloride 20 mEq ER Tab PO SCH (08:17)
[2018-12-15] MEDS: Fluticasone-Vilanterol 100/25mcg Diskus INH SCH (08:17)
[2018-12-15] MEDS: Pantoprazole 40 mg EC Tab PO SCH (09:13)
[2018-12-15] MEDS: Enoxaparin 40 mg Syringe SC SCH (09:14)
--- NOTE | 2018-12-15 14:14 | CP.PCM.CON ---
History of Present Illness - History of Present Illness History of Present Illness: CHART REVIEWED. PT SEEN AND EXAMINED. NOT NOTIFIED 48 YO HISP FEMALE WITH A HX ASTHMA?COPD, ADM WITH INCREASED MOD-SEVERE SOB X 1 DAY NO RELIEF WITH HOME NEB X 5 TX., +COUGH NO SPUTUM, NO FEVER, NO N/V. NO DIARRHEA. LAST EXAC 2 MONTHS AGO +PNA. TAPERED OFF PRED. RAN OUT OF SINGULAIR., ON ADVAIR PRN. QUIT SMOKING 6 YRS AGO. Review of Systems - Review of Systems All systems: reviewed and no additional remarkable complaints except - Constitutional Constitutional: absent: Fever - EENT Eyes: absent: Change in Vision Ears: absent: Dizziness Nose/Mouth/Throat: absent: Post Nasal Drip - Cardiovascular Cardiovascular: absent: Chest Pain - Respiratory Respiratory: Cough, Dyspnea, Dyspnea on Exertion, Wheezing - Gastrointestinal Gastrointestinal: absent: Diarrhea, Nausea, Vomiting - Genitourinary Genitourinary: absent: Dysuria - Musculoskeletal Musculoskeletal: absent: Back Pain - Integumentary Integumentary: absent: Rash - Neurological Neurological: absent: Confusion, Focal Weakness - Psychiatric Psychiatric: absent: Anxiety - Endocrine Endocrine: absent: Change in Body Appearance - Hematologic/Lymphatic Hematologic: absent: Lymphadenopathy Past Patient History - Past Medical History & Family History Past Medical History?: Yes Past Family History: Reviewed and not pertinent Pertinent Family History: NEG - Past Social History Smoking Status: Never Smoked Alcohol: None - CARDIAC Hx Cardiac Disorders: No - PULMONARY Hx Asthma: Yes Hx Bronchitis: Yes Hx Pneumonia: Yes - NEUROLOGICAL Hx Neurological Disorder: No - HEENT Hx HEENT Problems: No - RENAL Hx Chronic Kidney Disease: No - ENDOCRINE/METABOLIC Hx Endocrine Disorders: No - HEMATOLOGICAL/ONCOLOGICAL Hx Blood Disorders: No - INTEGUMENTARY Hx Dermatological Problems: No - MUSCULOSKELETAL/RHEUMATOLOGICAL Hx Falls: No - GASTROINTESTINAL Hx Gastrointestinal Disorders: No - GENITOURINARY/GYNECOLOGICAL Hx Genitourinary Disorders: No - PSYCHIATRIC Hx Psychophysiologic Disorder: No Hx Substance Use: No - SURGICAL HISTORY Hx Surgeries: Yes Hx Tubal Ligation: Yes - ANESTHESIA Hx Anesthesia: Yes Hx Anesthesia Reactions: No Meds Allergies/Adverse Reactions: Allergies Allergy/AdvReac Type Severity Reaction Status Date / Time Penicillins Allergy Mild RASH Verified 12/13/18 19:46 - Medications Medications: Current Medications Albuterol/Ipratropium (Duoneb 3 Mg/0.5 Mg (3 Ml) Ud) 3 ml INH RQ6 [facility] Last Admin: 12/15/18 13:44 Dose: 3 ml Enoxaparin Sodium (Lovenox) 40 mg SC DAILY [facility] Last Admin: 12/15/18 09:14 Dose: 40 mg Fluticasone/Vilanterol (Breo Ellipta 100-25 Mcg Inh) 1 puff INH RQD [facility] Last Admin: 12/15/18 08:17 Dose: Not Given Moxifloxacin HCl (Avelox Iv 400mg/250ml Ns) 400 mg in 250 mls @ 167 mls/hr IVPB Q24H [facility]; Protocol Last Admin: 12/14/18 18:05 Dose: 167 mls/hr Methylprednisolone (Solu-Medrol) 40 mg IVP Q8H [facility] Last Admin: 12/15/18 13:43 Dose: 40 mg Montelukast Sodium (Singulair) 10 mg PO HS [facility] Last Admin: 12/14/18 21:36 Dose: 10 mg Pantoprazole Sodium (Protonix Ec Tab) 40 mg PO DAILY [facility] Last Admin: 12/15/18 09:13 Dose: 40 mg Pneumococcal Polyvalent Vaccine (Pneumovax 23 Vaccine) 0.5 ml IM .ONCE ONE Stop: 12/16/18 10:01 Potassium Chloride (K-Dur 20 Meq Er Tab) 40 meq PO BRK [facility] Last Admin: 12/15/18 08:17 Dose: 40 meq Physical Exam - Constitutional Appears: Non-toxic - Head Exam Head Exam: ATRAUMATIC, NORMOCEPHALIC - Eye Exam Eye Exam: EOMI, Normal appearance - ENT Exam ENT Exam: Mucous Membranes Moist - Neck Exam Neck exam: Positive for: Normal Inspection - Respiratory Exam Respiratory Exam: Decreased Breath Sounds, Prolonged Expiratory Phase. absent: Respiratory Distress - Cardiovascular Exam Cardiovascular Exam: RRR, +S1, +S2 - GI/Abdominal Exam GI & Abdominal Exam: Soft. absent: Tenderness - Rectal Exam Rectal Exam: Deferred - Extremities Exam Extremities exam: Negative for: calf tenderness, pedal edema - Back Exam Back exam: absent: CVA tenderness (L), CVA tenderness (R) - Neurological Exam Neurological exam: Alert, CN II-XII Intact, Normal Gait, Oriented x3 - Psychiatric Exam Psychiatric exam: Normal Mood Results - Vital Signs Recent Vital Signs: Last Vital Signs Temp 97.8 F 12/15/18 07:20 Pulse 86 12/15/18 07:29 Resp 20 12/15/18 07:20 BP 103/68 12/15/18 07:20 Pulse Ox 97 12/15/18 07:20 - Labs Result Diagrams: 12/13/18 21:45 12/13/18 21:45 Assessment & Plan (1) Asthma exacerbation Status: Acute (2) Bronchitis Status: Acute (3) Pneumonia Status: Acute - Assessment and Plan (Free Text) Assessment: 48 YO FEMALE WITH A HX MULT MED PROBS ADM WITH ACUTE EXAC ASTHMA, POSS BIBASILAR PNA, CONT EMPIRIC AB. CONT STEROID TAPER TOLERATED, NEB BD., BREO., RESUME SINGULAIR. MONITOR PEAK FLOWS. CXR REVIEWED. F/U FOR CLEARANCE. GI/DVT PROPHYLAXIS. DISCUSSED WITH STAFF AT LENGTH.
[2018-12-15] MEDS: Moxifloxacin IV 400mg/250ml NS 400 MG/250 ML BAG IVPB SCH (18:01)
--- NOTE | 2018-12-15 21:11 | CP.PCM.PN ---
Subjective - Date & Time of Evaluation Date of Evaluation: 12/15/18 - Subjective Subjective: patient seen and examined today no nausea no vomiting no diarrhea no fever no dizziness no shortness of breath Objective - Vital Signs/Intake and Output Vital Signs (last 24 hours): Temp Pulse Resp BP Pulse Ox 97.8 F 90 18 101/54 L 98 12/15/18 15:38 12/15/18 16:26 12/15/18 15:38 12/15/18 15:38 12/15/18 15:38 - Medications Medications: Current Medications Albuterol/Ipratropium (Duoneb 3 Mg/0.5 Mg (3 Ml) Ud) 3 ml INH RQ6 [facility] Last Admin: 12/15/18 19:56 Dose: 3 ml Enoxaparin Sodium (Lovenox) 40 mg SC DAILY [facility] Last Admin: 12/15/18 09:14 Dose: 40 mg Fluticasone/Vilanterol (Breo Ellipta 100-25 Mcg Inh) 1 puff INH RQD [facility] Last Admin: 12/15/18 08:17 Dose: Not Given Moxifloxacin HCl (Avelox Iv 400mg/250ml Ns) 400 mg in 250 mls @ 167 mls/hr IVPB Q24H [facility]; Protocol Last Admin: 12/15/18 18:01 Dose: 167 mls/hr Methylprednisolone (Solu-Medrol) 40 mg IVP Q8H [facility] Last Admin: 12/15/18 13:43 Dose: 40 mg Montelukast Sodium (Singulair) 10 mg PO HS [facility] Last Admin: 12/14/18 21:36 Dose: 10 mg Pantoprazole Sodium (Protonix Ec Tab) 40 mg PO DAILY [facility] Last Admin: 12/15/18 09:13 Dose: 40 mg Pneumococcal Polyvalent Vaccine (Pneumovax 23 Vaccine) 0.5 ml IM .ONCE ONE Stop: 12/16/18 10:01 Potassium Chloride (K-Dur 20 Meq Er Tab) 40 meq PO BRK [facility] Last Admin: 12/15/18 08:17 Dose: 40 meq - Labs Labs: 12/13/18 21:45 12/13/18 21:45 - Constitutional Appears: Well - Head Exam Head Exam: ATRAUMATIC, NORMAL INSPECTION, NORMOCEPHALIC - Eye Exam Eye Exam: EOMI, Normal appearance, PERRL Pupil Exam: NORMAL ACCOMODATION, PERRL - ENT Exam ENT Exam: Mucous Membranes Moist, Normal Exam - Neck Exam Neck Exam: Full ROM, Normal Inspection. absent: Lymphadenopathy - Respiratory Exam Respiratory Exam: Decreased Breath Sounds - Cardiovascular Exam Cardiovascular Exam: REGULAR RHYTHM, +S1, +S2 - GI/Abdominal Exam GI & Abdominal Exam: Soft, Diminished Bowel Sounds - Rectal Exam Rectal Exam: Deferred - Neurological Exam Neurological Exam: Oriented x3 Assessment and Plan - Assessment and Plan (Free Text) Plan: patient is doing better possible discharge french bairon same monitor labs, vitals medications reviewed labs reviewed vitals reviewed avelox breo ellipta duoneb k-dur lovenox protonix ec tab singulair solu-medrol
[2018-12-16] MEDS: Albuterol-Ipratrop 3 mg / 0.5 (3 ml) UD INH SCH ×3 (01:39→13:13)
[2018-12-16 03:13] VITALS: RESP 20
[2018-12-16] MEDS: MethylPREDNISolone 40 mg Vial IVP SCH ×2 (05:42→13:05)
[2018-12-16] MEDS: Fluticasone-Vilanterol 100/25mcg Diskus INH SCH (08:09)
[2018-12-16] MEDS: Potassium Chloride 20 mEq ER Tab PO SCH (09:22)
[2018-12-16] MEDS: Pantoprazole 40 mg EC Tab PO SCH (09:24)
[2018-12-16] MEDS: Enoxaparin 40 mg Syringe SC SCH (09:24)
--- NOTE | 2018-12-16 09:35 | CP.PCM.PN ---
Subjective - Date & Time of Evaluation Date of Evaluation: 12/16/18 Time of Evaluation: 09:33 - Subjective Subjective: PT ALERT, LESS SOB. ROS; OTHERWISE NEG Objective - Vital Signs/Intake and Output Vital Signs (last 24 hours): Temp Pulse Resp BP Pulse Ox 97.5 F L 96 H 20 118/79 95 12/16/18 09:09 12/16/18 09:09 12/16/18 09:09 12/16/18 09:09 12/16/18 09:09 Intake and Output: 12/16/18 12/16/18 06:59 18:59 Intake Total 730 Balance 730 - Medications Medications: Current Medications Albuterol/Ipratropium (Duoneb 3 Mg/0.5 Mg (3 Ml) Ud) 3 ml INH RQ6 [facility] Last Admin: 12/16/18 08:09 Dose: 3 ml Enoxaparin Sodium (Lovenox) 40 mg SC DAILY [facility] Last Admin: 12/16/18 09:24 Dose: 40 mg Fluticasone/Vilanterol (Breo Ellipta 100-25 Mcg Inh) 1 puff INH RQD [facility] Last Admin: 12/16/18 08:09 Dose: Not Given Moxifloxacin HCl (Avelox Iv 400mg/250ml Ns) 400 mg in 250 mls @ 167 mls/hr IVPB Q24H [facility]; Protocol Last Admin: 12/15/18 18:01 Dose: 167 mls/hr Methylprednisolone (Solu-Medrol) 40 mg IVP Q8H [facility] Last Admin: 12/16/18 05:42 Dose: 40 mg Montelukast Sodium (Singulair) 10 mg PO HS [facility] Last Admin: 12/15/18 21:40 Dose: 10 mg Pantoprazole Sodium (Protonix Ec Tab) 40 mg PO DAILY [facility] Last Admin: 12/16/18 09:24 Dose: 40 mg Pneumococcal Polyvalent Vaccine (Pneumovax 23 Vaccine) 0.5 ml IM .ONCE ONE Stop: 12/16/18 10:01 Last Admin: 12/16/18 09:23 Dose: 0.5 ml Potassium Chloride (K-Dur 20 Meq Er Tab) 40 meq PO BRK [facility] Last Admin: 12/16/18 09:22 Dose: 40 meq - Labs Labs: 12/13/18 21:45 12/13/18 21:45 - Constitutional Appears: No Acute Distress - Head Exam Head Exam: ATRAUMATIC, NORMOCEPHALIC - Eye Exam Eye Exam: EOMI, Normal appearance - ENT Exam ENT Exam: Mucous Membranes Moist - Neck Exam Neck Exam: Normal Inspection - Respiratory Exam Respiratory Exam: Decreased Breath Sounds, Prolonged Expiratory Phase. absent: Accessory Muscle Use, Respiratory Distress - Cardiovascular Exam Cardiovascular Exam: RRR, +S1, +S2 - GI/Abdominal Exam GI & Abdominal Exam: Soft. absent: Tenderness - Rectal Exam Rectal Exam: Deferred - Extremities Exam Extremities Exam: absent: Calf Tenderness, Pedal Edema - Back Exam Back Exam: absent: CVA tenderness (L), CVA tenderness (R) - Neurological Exam Neurological Exam: Alert, Awake, CN II-XII Intact, Oriented x3 - Psychiatric Exam Psychiatric exam: Normal Mood - Skin Skin Exam: absent: Rash Assessment and Plan (1) Asthma exacerbation Status: Acute (2) Bronchitis Status: Acute (3) Pneumonia Status: Acute - Assessment and Plan (Free Text) Assessment: RESP STATUS IMPROVING., ON STEROID TAPER, CONT NEB BD., BREO AND SINGULAIR. AFEBRILE ON AB., CXR REVIEWED. INCREASE OOB. DISCUSSED WITH STAFF .
[2018-12-16] MEDS ORDERED: Pneumococcal 23-Valent Vaccine IM ONE (10:00)
[2018-12-16] MEDS ORDERED: guaiFENesin 600 mg ER Tab PO SCH ×3 (13:17→18:00)
--- NOTE | 2018-12-16 16:04 | CP.PCM.PN ---
Subjective - Date & Time of Evaluation Date of Evaluation: 12/16/18 Time of Evaluation: 12:00 - Subjective Subjective: patient seen today , states feels better, sob improved, denies any headache, dizziness, c/o menstrual cramps and dry cough a febrile Objective - Vital Signs/Intake and Output Vital Signs (last 24 hours): Temp Pulse Resp BP Pulse Ox 97.5 F L 85 20 118/79 95 12/16/18 09:09 12/16/18 12:20 12/16/18 09:09 12/16/18 09:09 12/16/18 09:09 Intake and Output: 12/16/18 12/16/18 06:59 18:59 Intake Total 730 350 Balance 730 350 - Medications Medications: Current Medications Albuterol/Ipratropium (Duoneb 3 Mg/0.5 Mg (3 Ml) Ud) 3 ml INH RQ6 [facility] Last Admin: 12/16/18 13:13 Dose: 3 ml Enoxaparin Sodium (Lovenox) 40 mg SC DAILY [facility] Last Admin: 12/16/18 09:24 Dose: 40 mg Fluticasone/Vilanterol (Breo Ellipta 100-25 Mcg Inh) 1 puff INH RQD [facility] Last Admin: 12/16/18 08:09 Dose: Not Given Guaifenesin (Mucinex La) 600 mg PO Q12H [facility] Moxifloxacin HCl (Avelox Iv 400mg/250ml Ns) 400 mg in 250 mls @ 167 mls/hr IVPB Q24H [facility]; Protocol Last Admin: 12/15/18 18:01 Dose: 167 mls/hr Methylprednisolone (Solu-Medrol) 40 mg IVP Q8H [facility] Last Admin: 12/16/18 13:05 Dose: 40 mg Montelukast Sodium (Singulair) 10 mg PO HS [facility] Last Admin: 12/15/18 21:40 Dose: 10 mg Pantoprazole Sodium (Protonix Ec Tab) 40 mg PO DAILY [facility] Last Admin: 12/16/18 09:24 Dose: 40 mg Potassium Chloride (K-Dur 20 Meq Er Tab) 40 meq PO BRK [facility] Last Admin: 12/16/18 09:22 Dose: 40 meq - Labs Labs: 12/13/18 21:45 12/13/18 21:45 Assessment and Plan - Assessment and Plan (Free Text) Assessment: 48 yr old female with pmhx of asthma presented to the ED with sob and admitted with exc. asthma Patient clinically improved with steroids seen by Dr. chaudhary cleared fro discharge home today and continue medrol dose pack and continue 3 more days of antibiotics discharge plan discussed with patient who understands and agrees with plan RX given upon discharge
[2018-12-16 16:19] LABS: BLOOD UREA NITROGEN 19 mg/dL (7-17); CALCIUM 9.9 mg/dl (8.6-10.4); GFR NON-AFRICAN AMERICAN > 60
[2018-12-16 17:07] VITALS: BP 99/65; PULSE 94; TEMP 97.9; O2SAT 97
--- NOTE | 2018-12-16 17:37 | CP.PCM.PN ---
Subjective - Date & Time of Evaluation Date of Evaluation: 12/16/18 - Subjective Subjective: patient seen and examined today no nausea, no vomiting, no diarrhea, no fever, no shortness of breath Objective - Vital Signs/Intake and Output Vital Signs (last 24 hours): Temp Pulse Resp BP Pulse Ox 97.9 F 94 H 20 99/65 L 97 12/16/18 15:10 12/16/18 15:10 12/16/18 15:10 12/16/18 15:10 12/16/18 15:10 Intake and Output: 12/16/18 12/16/18 06:59 18:59 Intake Total 730 350 Balance 730 350 - Medications Medications: Current Medications Albuterol/Ipratropium (Duoneb 3 Mg/0.5 Mg (3 Ml) Ud) 3 ml INH RQ6 [facility] Last Admin: 12/16/18 13:13 Dose: 3 ml Enoxaparin Sodium (Lovenox) 40 mg SC DAILY [facility] Last Admin: 12/16/18 09:24 Dose: 40 mg Fluticasone/Vilanterol (Breo Ellipta 100-25 Mcg Inh) 1 puff INH RQD [facility] Last Admin: 12/16/18 08:09 Dose: Not Given Guaifenesin (Mucinex La) 600 mg PO Q12H [facility] Moxifloxacin HCl (Avelox Iv 400mg/250ml Ns) 400 mg in 250 mls @ 167 mls/hr IVPB Q24H [facility]; Protocol Last Admin: 12/15/18 18:01 Dose: 167 mls/hr Methylprednisolone (Solu-Medrol) 40 mg IVP Q8H [facility] Last Admin: 12/16/18 13:05 Dose: 40 mg Montelukast Sodium (Singulair) 10 mg PO HS [facility] Last Admin: 12/15/18 21:40 Dose: 10 mg Pantoprazole Sodium (Protonix Ec Tab) 40 mg PO DAILY [facility] Last Admin: 12/16/18 09:24 Dose: 40 mg Potassium Chloride (K-Dur 20 Meq Er Tab) 40 meq PO BRK [facility] Last Admin: 12/16/18 09:22 Dose: 40 meq - Labs Labs: 12/13/18 21:45 12/16/18 15:46 - Constitutional Appears: Well - Head Exam Head Exam: ATRAUMATIC, NORMAL INSPECTION, NORMOCEPHALIC - Eye Exam Eye Exam: EOMI, Normal appearance, PERRL Pupil Exam: NORMAL ACCOMODATION, PERRL - ENT Exam ENT Exam: Mucous Membranes Moist, Normal Exam - Neck Exam Neck Exam: Full ROM, Normal Inspection. absent: Lymphadenopathy - Respiratory Exam Respiratory Exam: Decreased Breath Sounds - Cardiovascular Exam Cardiovascular Exam: REGULAR RHYTHM, +S1, +S2 - GI/Abdominal Exam GI & Abdominal Exam: Soft, Diminished Bowel Sounds - Rectal Exam Rectal Exam: Deferred - Neurological Exam Neurological Exam: Oriented x3 Assessment and Plan - Assessment and Plan (Free Text) Plan: medications reviewed labs reviewed vitals reviewed
== END 2018-12-16 17:37 | disposition home or self-care (01) ==
LOC: C.ER 19:31 → C.6T 22:07
PROVIDERS: ADMIT Internal Medicine Nephrology; ATTEND Internal Medicine Nephrology
DX: J45.901 Unspecified asthma with (acute) exacerbation (principal); Z87.01 Personal history of pneumonia (recurrent); B34.9 Viral infection, unspecified; J18.9 Pneumonia, unspecified organism; Z23 Encounter for immunization
CPT/HCPCS: 36415; 71046; 80048; 80053; 85025; 90471; 90732; 94640; 96374; 99285; G0378; J1650; J2280; J2920; J2930; J3475